=== PATIENT | female | born 1935 ===

== ENCOUNTER 2019-04-25 07:11 | Inpatient (IN) | payer MEDICARE ==
--- NOTE | 2019-04-12 16:12 | HP ---
HISTORY AND PHYSICAL: DATE OF ADMISSION/SURGERY: 04/25/19 DATE OF OFFICE VISIT: 04/10/19 SURGEON: Romi Lopes MD * (DICTATED BY RENNY DE JESUS) PROCEDURE: Left total hip arthroplasty CHIEF COMPLAINT: Left hip pain. HISTORY OF PRESENT ILLNESS: Ms. Warren is 84-year-old female with severe endstage osteoarthritis of left hip. She has failed conservative treatment and elected to proceed with the left total hip arthroplasty. PAST MEDICAL HISTORY: Coronary artery disease, pacemaker, AFib, high cholesterol, hypertension, history of parathyroid tumor, and history of colon cancer. PAST SURGICAL HISTORY: Pacemaker placement, parathyroidectomy, cholecystectomy , tonsillectomy, bowel resection, bilateral carpal tunnel release, cataract removal and hemorrhoidectomy. CURRENT MEDICATIONS: 1. Tramadol 50 mg every 12 hours as needed. 2. Gabapentin 600 mg 4 times a day. 3. Atorvastatin calcium 40 mg a day. 4. 81 mg aspirin. 5. Colace. 6. Tylenol. 7. MiraLAX. 8. Multivitamin. 9. Calcium and vitamin D. 10. Ibuprofen 3 times a day. ALLERGIES: PENICILLIN and DICLOFENAC cream. FAMILY HISTORY: Diabetes, coronary artery disease, and stroke. SOCIAL HISTORY: She is an 84-year-old female. She lives with her . She does not smoke or use drugs. REVIEW OF SYSTEMS: A complete 14 point review of systems was reviewed with the patient, was positive for some occasional chest pain. She denies history of DVT , PE, hepatitis, HIV or anesthesia problems. PHYSICAL EXAMINATION GENERAL: She is well developed, well nourished, in no acute distress. VITAL SIGNS: She stands 5 feet 4 inches tall, weighs 197 pounds, blood pressure 142/82, heart rate 76. HEENT: Normocephalic, atraumatic. NECK: Supple. No palpable lymph nodes. PULMONARY: Lungs are clear to auscultation bilaterally. CARDIO: Regular rate and rhythm. Strong S1, S2. ABDOMEN: Soft, nontender, nondistended. NEUROLOGICAL: She is alert and oriented x3. MUSCULOSKELETAL: Left lower extremity: Skin is intact. There are no open wounds or abrasions. She walks with an antalgic type gait favoring her left hip. She has 70 degrees of hip flexion, 0 degrees of internal rotation, both causing severe groin pain. She is able to dorsiflex and plantarflex, has a 2+ dorsalis pedis pulses. Intact sensation. ASSESSMENT AND PLAN: Ms. Warren is a 84-year-old female with severe endstage osteoarthritis of the left hip. She has failed conservative treatment and elected to proceed with the left total hip arthroplasty. The surgery is scheduled for 04/25/[address] Lopes discussed the risks and benefits of the surgery at today's visit and all of her questions were answered. She will follow up with Dr. Lopes in 2 weeks after the surgery. RENNY DE JESUS [id number]/[facility] #: [id number] ANA
[~2019-04-25 07:11] MED LIST: Acetaminophen TAB* 325 MG PO ONE; Buffered Lidocaine 1% SYRIN* 1 ML/SYRINGE INTRADERM ONE; Lactated Ringers 1000 ML Bag* 1,000 ML IV SCH; celeCOXIB CAP* 100 MG PO ONE
--- OUTSIDE RECORDS SUMMARY | 2019-04-25 07:13 | XMS REPORT | Continuity of Care Document ---
:1935 External Reference #:[id number] Author Name Romi Lopes M.D. 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 Onset: 03/2019 region and thigh Morbid obesity Romi Lopes M.D. Onset: 02/24/2019 Social History Type Date Description Comments Sex Unknown ETOH Use Rarely consumes alcohol Tobacco Use Start: Unknown Patient has never smoked Smoking Status Reviewed: 04/10/19 Patient has never smoked Exercise Type/Frequency Exercises sporadically Allergies, Adverse Reactions, Alerts Active Allergies Reaction Severity Comments Date Penicillin 01/03/2019 Diclofenac Hives 01/03/2019 Inactive Allergies NKDA 01/03/2019 Medications Active Medications SIG Qnty Indications Ordering Date Provider Tramadol HCL 1 tab po q 12h Citlalli Ashley, 50mg MD Tablets Furosemide 1 tab po qd Unknown 20mg Tablets Gabapentin 600mg po qid Citlalli Ashley, 600mg MD Tablets Atorvastatin Calcium 1 tab po qHS Citlalli Ashley, MD 40mg Tablets Aspirin Ec Low Dose 1 by mouth every day Unknown 81mg Tablets Docusate Sodium 1 tab every 12 hours Unknown 100mg as needed for Capsules constipation Acetaminophen 2 every 4 hours as Unknown 325mg needed for pain Tablets Miralax 17 grams by mouth Unknown Powder every day as needed Multivitamin Adults once a day Unknown 50+ Adlt 50+ Tablets Calcium 500+D High take one tab by Unknown Potency mouth daily. [id number] Tablets Ibuprofen 1 by mouth three Unknown 800mg Tablets times a day Medications Administered in Office Medication SIG Qnty Indications Ordering Provider Date Depomedrol 40MG Pepe Hudson MD 01/03/2019 Injection Immunizations Description No Information Available Vital Signs Date Vital Result Comment 04/10/2019 1:04pm Height 64 inches 5'4" Weight 197.00 lb Heart Rate 64 /min BP Systolic 142 mmHg BP Diastolic 82 mmHg Respiratory Rate 18 /min Body Temperature 97.9 F Pain Level 2 BMI (Body Mass Index) 33.8 kg/m2 02/24/2019 11:18am Height 64 inches 5'4" Weight 200.00 lb Heart Rate 72 /min BP Systolic 126 mmHg BP Diastolic 84 mmHg Pain Level 7 BMI (Body Mass Index) 34.3 kg/m2 Results Description No Information Available Procedures Date Code Description Status 01/03/2019 32571 Inject/Drain Joint/Bursa Major W/O US Completed Medical Devices Description No Information Available Encounters Type Date Location Provider Dx Diagnosis Office Visit 02/24/2019 [facility] Romi Lopes, M25.552 Pain in left hip 11:00a at [facility] M16.12 Unilateral primary osteoarthritis, left hip Z68.34 Body mass index (BMI) 34.0-34.9, adult E66.01 Morbid (severe) obesity due to excess calories Office Visit 01/03/2019 [facility] M19.011 Primary 2:30p [facility]oped[facility] at [facility], [place] right shoulder M25.511 Pain in right shoulder M16.12 Unilateral primary osteoarthritis, left hip M25.552 Pain in left hip Assessments Date Code Description Provider 04/10/2019 M25.552 Pain in left hip Romi Lopes M.D. 04/10/2019 M16.12 Unilateral primary osteoarthritis, left hip Romi Lopes M.D. 02/24/2019 M25.552 Pain in left hip Romi Lopes M.D. 02/24/2019 M16.12 Unilateral primary osteoarthritis, left hip Romi Lopes M.D. 02/24/2019 Z68.34 Body mass index (BMI) 34.0-34.9, adult Romi Lopes M.D. 02/24/2019 E66.01 Morbid (severe) obesity due to excess Romi Lopes M.D. calories 01/03/2019 M19.011 Primary osteoarthritis, right shoulder Pepe Hudson MD 01/03/2019 M25.511 Pain in right shoulder Pepe Hudson MD 01/03/2019 M16.12 Unilateral primary osteoarthritis, left hip Pepe Hudson MD 01/03/2019 M25.552 Pain in left hip Pepe Hudson MD Plan of Treatment Future Appointment(s):05/08/2019 2:15 pm - Romi Lopes M.D. at [facility] at Korosu8704/25/2019 2:30 pm - Germán King PA-C at [facility] at Xvafdn6004/25/2019 2:30 pm - RENNY Cobos at [facility] at Lmkqqh1504/25/2019 2:30 pm - Romi Lopes M.D. at [facility] at Maynwk5805/03/2019 10:15 am - Romi Lopes M.D. at [facility] at Lqaras0504/10/2019 - Romi Lopes M.D.M25.552 Pain in left hipFollow up:Follow up: 2 weeks after gbpceebW63.12 Unilateral primary osteoarthritis, left hip Functional Status Description No Information Available Mental Status Description No Information Available Referrals Description No Information Available
--- OUTSIDE RECORDS SUMMARY | 2019-04-25 07:13 | XMS REPORT | Continuity of Care Document ---
:1935 Author Organization [facility] Care Team Providers Name Role Phone CHARISSA RODGERS Admitting Physician CHARISSA RODGERS Attending Physician Allergies and Intolerances Code Code System Allergy Type Reaction Severity Start End Date Status Substance Date RXNorm Penicillins Drug RASH Unknown Active allergy 0 (disorder) Medications RxNorm Medication Dose Route Instructions Start Date End Date Status 1191 Aspirin 81 mg oral orally daily Active (called Denator and verified medication list with the patient and the pharmacy ) 621663 atorvastatin 40 MG 40 mg oral orally every day Active Oral Tablet at bedtime flaxseed qd (stop) Active 698380 Furosemide 20 MG 20 mg oral orally daily Active Oral Tablet 560950 gabapentin 600 MG 600 mg oral orally every day Active Oral Tablet at bedtime 517800 tramadol 50 mg oral orally every 12 Active hydrochloride 50 MG hours as needed. Oral Tablet tylenol prn Active Medications At Time Of Discharge RxNorm Medication Dose Route Instructions Start Date End Date Status 1191 Aspirin 81 mg oral orally daily Active (called Denator and verified medication list with the patient and the pharmacy ) 996346 atorvastatin 40 MG 40 mg oral orally every day Active Oral Tablet at bedtime flaxseed qd (stop) Active 538685 Furosemide 20 MG 20 mg oral orally daily Active Oral Tablet 775936 gabapentin 600 MG 600 mg oral orally every day Active Oral Tablet at bedtime 096793 tramadol 50 mg oral orally every 12 Active hydrochloride 50 MG hours as needed. Oral Tablet tylenol prn Active Problems Code Code System Problem Name Start Date End Date Status Hemorroids U Active 871014816 SNOMED-CT Acute chest pain Active Procedures Code Code System Procedure Date 599057078 SNOMED CT [place]illectomy U 27450045 SNOMED CT Cholecystectomy U Results Microbiology Results w Susceptibilities Order: CULTURE URINE Specimen Source: Urine Body Site: Urine specimen collection, clean catchCultural Observations:Growth not [id number] Lab Footnotes:[facility] - [id number] - [address] [place] [address] FILEMON Agustin [id number] Social History Code Code System Social History Description Dates Observed Observation 841309611 SNOMED CT Current Smoking Unknown if ever Status smoked UNK AdministrativeGender Sex Assigned At Unknown Vital Signs No data in the system Goals Section No data in the system Health Concerns No data in the systemEncounter Diagnosis Date Code Code System Diagnosis Status N39.0 ICD10 UTI SITE NOT SPECIFIED Active Advance Directives HEALTH CARE PROXY Directive Type Effective Date Manager Bench Notes Supporting Document Name Address Phone No Directive 01/29/2019 Not Specified Not Specified Not Specified Health care Yes Type 6:30:00 AM proxy is Jonathan specified Kelvin [phone]. Encounters Encounter Diagnosis Location Date UTI SITE NOT SPECIFIED [facility] 04/11/2019 Family History No Significant Family History Functional Status No data in the system Immunizations No data in the system Medical Equipment No data in the system Mental Status No data in the system Assessment and Plan Assessments No data in the systemPlan Of Treatment No data in the systemPending Tests No data in the system Hospital Discharge Instructions No data in the system Reason for Visit No data in the system
--- OUTSIDE RECORDS SUMMARY | 2019-04-25 07:13 | XMS REPORT | Continuity of Care Document ---
:1935 External Reference #:[id number] Author Name Romi Lopes M.D. 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 [id number] Tablets Ibuprofen 1 by mouth three Unknown [...] BMI (Body Mass Index) 34.3 kg/m2 Results Test Acquired Date Facility Test Result H/L Range Note Urinalysis Profile 04/10/2019 [facility] Urine Color Yellow [address] [place] [address] [phone] Urine Appearance Clear Urine Specific [place] 1.014 Normal 1.010-1.030 Urine pH 6.0 Normal 5-9 Urine Urobilinogen Negative Negative Urine Ketones Negative Negative Urine Protein Negative Negative Urine Leukocytes Negative Negative Urine Blood Negative Negative * * Abnormal Negative 1 Urine Nitrite Negative Negative Urine Bilirubin Negative Negative Urine Glucose Negative Negative CBC Auto 04/10/2019 [facility] White Blood 6.8 10^3/uL Normal 3.5-10.[address] [place] [address] [phone] Red Blood Count 4.42 10^6/uL Normal 3.70-4.87 Hemoglobin 13.5 g/dL Normal 12.0-16.0 Hematocrit 41 % Normal 35-47 Mean Corpuscular Volume 94 fL Normal 80-97 Mean Corpuscular Hemoglobin 31 pg Normal 27-31 Mean Corpuscular HGB Conc 33 g/dL Normal 31-36 Red Cell Distribution Width 13 % Normal 10-15 Platelet Count 252 10^3/uL Normal 150-450 Mean Platelet Volume 8.2 fL Normal 7.4-10.4 Abs Neutrophils 4.9 10^3/uL Normal 1.5-7.7 Abs Lymphocytes 1.2 10^3/uL Normal 1.0-4.8 Abs Monocytes 0.5 10^3/uL Normal 0-0.8 Abs Eosinophils 0.1 10^3/uL Normal 0-0.6 Abs Basophils 0.1 10^3/uL Normal 0-0.2 Abs Nucleated RBC 0.0 10^3/uL Granulocyte % 72.1 % Lymphocyte % 18.3 % Monocyte % 7.5 % Eosinophil % 0.9 % Basophil % 1.2 % Nucleated Red Blood Cells % 0.1 Inr/Protime 04/10/2019 [facility] Inr 0.97 Normal 0.82-1.[address] [place] [address] [phone] Laboratory test 04/10/2019 [facility] Partial 33.4 Normal 26.0 -38.[address] [place] [address] Time PTT [phone] Comp Metabolic 04/10/2019 [facility] Sodium 140 mmol/L Normal 135-[address] [place] [address] [phone] Potassium 4.4 mmol/L Normal 3.5-5.0 Chloride 104 mmol/L Normal 101-111 Co2 Carbon Dioxide 29 mmol/L Normal 22-32 Anion Gap 7 mmol/L Normal 2-11 Glucose 97 mg/dL Normal 70-100 Blood Urea Nitrogen 19 mg/dL Normal 6-24 Creatinine 0.66 mg/dL Normal 0.51-0.95 BUN/Creatinine Ratio 28.8 High 8-20 Calcium 9.5 mg/dL Normal 8.6-10.3 Total Protein 6.4 g/dL Normal 6.4-8.9 Albumin 4.1 g/dL Normal 3.2-5.2 Globulin 2.3 g/dL Normal 2-4 Albumin/Globulin Ratio 1.8 Normal 1-3 Total Bilirubin 0.30 mg/dL Normal 0.2-1.0 Alkaline Phosphatase 90 U/L Normal 34-104 Alt 17 U/L Normal 7-52 Ast 21 U/L Normal 13-39 Egfr Non- 85.1 >60 Egfr 103.0 >60 3 Type & Screen 04/10/2019 [facility] Patient Blood Type O Positive [address] [place] [address] [phone] Antibody Screen NEGATIVE Urine Culture And 04/10/2019 [facility] Urine Culture SEE RESULT [address] [place], [place] [address] [phone] 1 *Ascorbic acid is present which may interfere with detection of blood. 2 Standard intensity warfarin therapeutic range: 2.0-3.0 High intensity warfarin therapeutic range: 2.5-3.5 3 Because ethnic data is not always readily available, this report includes an eGFR for both -Americans and non- Americans. The National Kidney Disease Education Program (NKDEP) does not endorse the use of the MDRD equation for patients that are not between the ages of 18 and 70, are , have extremes of body size, muscle mass, or nutritional status, or are non- or non-. According to the National Kidney Foundation, irrespective of diagnosis, the stage of the disease is based on the level of kidney function: Stage Description GFR(mL/min/1.73 m(2)) 1 Kidney damage with normal or decreased GFR 90 2 Kidney damage with mild decrease in GFR 60-89 3 Moderate decrease in GFR 30-59 4 Severe decrease in GFR 15-29 5 Kidney failure <15 (or dialysis) 4 SEE RESULT BELOW Name: DAVIDA WARREN : [address]: Romi Lopes MD Acct: [id number] Unit: [id number] AGE: 84 Location: [facility] Re04/10/19 SEX: F Status: REG REF SPEC: [id number] SONIA: 04/10/19 [facility] DR: Romi Lopes MD REQ: [id number] RECD: 04/10/19 STATUS: COMP _ SOURCE: URINE SPDESC: ORDERED: Urine Culture Procedure Result Reported Site Urine Culture Final 04/11/19- 1402 ML No Growth (<1,000 CFU/mL) * ML - Main Lab . END OF REPORT DEPARTMENT OF PATHOLOGY, [address] [place] [address] Juan F Mcdonald M.D. Director [facility] # [id number] Procedures Date Code Description Status 01/03/2019 22646 Inject/Drain Joint/Bursa Major W/O US Completed Medical Devices Description No Information Available Encounters Type Date Location Provider Dx Diagnosis Office Visit 02/24/2019 [facility] Romi Lopes, M25.552 Pain in left hip 11:00a at [place] [facility]ildeDM[facility] M16.12 Unilateral primary osteoarthritis, left hip Z68.34 Body mass index (BMI) 34.0-34.9, adult E66.01 Morbid (severe) obesity due to excess calories Office Visit 01/03/2019 [facility] M19.011 Primary 2:30p [facility]oped[facility] at [facility], [place] right shoulder M25.511 Pain in right shoulder [...] 2:15 pm - Romi Lopes M.D. at [facility] at Pqggfs0604/25/2019 2:30 pm - Germán King PA-C at [facility] at Xqlvez8704/25/2019 2:30 pm - RENNY Cobos at [facility] at Sfgmtz3204/25/2019 2:30 pm - Romi Lopes M.D. at [facility] at Linwdf8804/10/2019 - Romi Lopes M.D.M25.552 Pain in left hipFollow up:Follow up: 2 weeks after sdjgcekY57.12 Unilateral primary osteoarthritis, left hip Functional Status Description No Information Available Mental Status Description No Information Available Referrals Description No Information Available
--- OUTSIDE RECORDS SUMMARY | 2019-04-25 07:13 | XMS REPORT | Continuity of Care Document ---
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 Mixed hyperlipidemia Citlalli Ashley MD Onset: 03/20/2014 Obesity Citlalli Ashley MD Onset: 08/16/2014 Malignant tumor of parotid gland Citlalli Ashley MD Onset: 09/18/2014 Spinal stenosis of lumbar region Citlalli Ashley MD Onset: 03/26/2016 Essential hypertension Citlalli Ashley MD Onset: 03/29/2017 Overweight Citlalli Ashley MD Onset: 04/11/2019 Degenerative joint disease involving multiple Citlalli Ashley MD Onset: 04/11 joints Social History Type Date Description Comments Sex Unknown Cigarette Use Denies Cigarette Use Smokeless Tobacco Never Used Smokeless Tobacco ETOH Use Rarely consumes alcohol Tobacco Use Start: Unknown Patient has never smoked Recreational Drug Use Denies Drug Use Smoking Status Reviewed: 04/28/18 Patient has never smoked Allergies, Adverse Reactions, Alerts Active Allergies Reaction Severity Comments Date Penicillin rash 07/10/2014 Diclofenac Sodium Rash Mild Topical 10/27/2018 Medications Active Medications SIG Qnty Indications Ordering Date Provider Tramadol HCL 1 by mouth every 6 120tabs R60.0 Citlalli Ashley, 03/09/2019 50mg hours as needed MD Tablets pain Ibuprofen 1 po tid prn 90tabs Citlalli Carlos Albertos, 10/27/2018 800mg Tablets MD Gabapentin 4 tabs by mouth 120tabs Citlalli Ashley, 03/29/2017 600mg every night at Tablets bedtime Atorvastatin Calcium Take 1 Tablet By 90tabs E78.2 Citlalli Ashley, 2014 Mouth Every Day 40mg Tablets Multi-Day 1 tab po qd Unknown Calcium + D3 1 by mouth every Unknown day [id number] Tablets Miralax 1 tablespoon by Unknown [id number] Powder mouth in in the morning beverage Stool Softener 2 by mouth every Unknown 100mg day as needed Capsules Acetaminophen 2 tabs by mouth Unknown 325mg every 6 hours as Tablets needed pain Aspirin Ec 1 by mouth every Unknown 81mg Tablets day Lisinopril 1 by mouth every Unknown 10mg Tablets day Ibuprofen one tablet every 6 Unknown 400mg Tablets hrs prn History Medications Furosemide 1 by mouth every 30tabs R60.0 Kristin Harrington, 12/27/2018 - 20mg day [facility] 04/10/2019 Tablets Tramadol HCL 1 by mouth twice 60tabs R60.0 Citlalli Ashley, 11/29/2018 - 50mg a day as needed 03/09/2019 Tablets pain Medications Administered in Office Medication SIG Qnty Indications Ordering Provider Date Injection Lila Kwon M.D. 11/28/2018 Acetate 80 MG Injection Injection Lila Kwon M.D. 11/10/2018 Acetate 80 MG Injection Injection Lila Kwon M.D. 08/04/2018 Acetate 80 MG Injection Injection Lila Kwon M.D. 04/28/2018 Acetate 80 MG Injection Injection Lila Kwon M.D. 01/18/2018 Acetate 80 MG Injection Injection Methylprednisolone Nichole Ramírez, [facility] 12/07/2016 Acetate 80 MG Injection Injection Lila Kwon M.D. 10/09/2016 Acetate 80 MG Injection Immunizations CPT Code Status Date Vaccine Lot # [id number] Given 02/10/2019 Influenza Virus Vaccine, Quad, Preservative [id number] Free 6mo & up 56781 Given 02/26/2018 Influenza Virus Vaccine, Quad, Preservative [id number] Free 6mo & up 86434 Given 03/29/2017 Influenza Virus Vaccine, Quad, Preservative [id number] Free 6mo & up 00450 Given 03/26/2016 Influenza Virus Vaccine, Quad, Preservative [id number] Free 6mo & up 71116 Given 03/21/2015 Influenza Virus Vaccine, Quad, Preservative [id number] Free 6mo & up 77911 Given 09/18/2014 Pneumococcal Vaccine 2Yrs Or Older (Pneumovax [id number]) 66904 Given 09/26/2013 Tetanus, Diphtheria Toxoids/Acellular Pertussis Vaccine 7 Or > Q2037 Given 03/21/2013 Influenza Vaccine (Fluvirin) 3 Years Of Age Or Older 75493 Given 05/25/2012 Zoster Shingles Vaccine For Subcutaneous Injection Q2037 Given 03/18/2012 Influenza Vaccine (Fluvirin) 3 Years Of Age Or Older 03772 Given 02/14/2011 Influenza Virus Split 3 Yrs And Above For Intramuscular Use 18280 Given 01/28/2010 Influenza Virus Split 3 Yrs And Above For Intramuscular Use 13921 Given 02/16/2009 Influenza Virus Split 3 Yrs And Above For Intramuscular Use 19366 Given 02/21/2008 Pneumococcal Vaccine 2Yrs Or Older (Pneumovax 23) 68115 Given 02/21/2008 Influenza Virus Split 3 Yrs And Above For Intramuscular Use 67748 Given 03/05/2007 Influenza Virus Split 3 Yrs And Above For Intramuscular Use 61772 Given 02/27/2006 Influenza Virus Split 3 Yrs And Above For Intramuscular Use 17800 Given 07/21/2005 Td Toxoids Adsorbed For Use 7Yrs Or Older For Intramuscular Use 38523 Given 02/28/2005 Influenza Virus Split 3 Yrs And Above For Intramuscular Use 57781 Given 02/22/2003 Influenza Virus Split 3 Yrs And Above For Intramuscular Use 11538 Given 03/30/2000 Pneumococcal Vaccine 2Yrs Or Older (Pneumovax 23) Vital Signs Date Vital Result Comment 04/11/2019 3:30pm Weight 198.00 lb Weight 89.813 kg BMI (Body Mass Index) 35.1 kg/m2 BP Systolic 164 mmHg BP Diastolic 84 mmHg Heart Rate 86 /min Body Temperature 98.6 F Respiratory Rate 18 /min Height 63 inches 5'3" Height in cm's 160.0 cm O2 % BldC Oximetry 96 % 02/10/2019 2:50pm Weight 199.00 lb Weight 90.266 kg BMI (Body Mass Index) 35.2 kg/m2 BP Systolic 120 mmHg BP Diastolic 72 mmHg Heart Rate 98 /min Body Temperature 99.1 F Respiratory Rate 18 /min Height 63 inches 5'3" Height in cm's 160.0 cm O2 % BldC Oximetry 98 % Results Test Acquired Date Facility Test Result H/L Range Note Laboratory test 04/11/2019 [facility] Culture <pending> finding [phone] Urine Laboratory test 02/10/2019 [facility] TSH 1.03 uIU/mL 0.34- 4.82 finding [phone] Basic Metabolic 02/10/2019 [facility] Sodium 143 mmol/L 136- 145 Panel [phone] Potassium 4.7 mmol/L 3.5-5.2 Chloride 106 mmol/L 100-108 Co2 28 mmol/L 21-32 Glucose 120 mg/dL High 70-100 BUN 25 mg/dL High 7-21 Creatinine 1.0 mg/dL 0.6-1.3 1 Calcium 10.0 mg/dL 8.5-10.8 GFR 52 Basic Metabolic Panel 11/29/2018 [facility] Sodium 139 mmol/L 136-145 [phone] Potassium 4.5 mmol/L 3.5-5.2 Chloride 106 mmol/L 100-108 Co2 27 mmol/L 21-32 Glucose 84 mg/dL 70-100 BUN 24 mg/dL High 7-21 Creatinine 0.7 mg/dL 0.6-1.3 2 Calcium 9.5 mg/dL 8.5-10.8 GFR >60 Xray 11/28/2018 [facility] Hip, Unilat W/Pelvis <pending > [address] [place] [address] [phone] Knee, [address] <pending> Comprehensive Panel 10/27/2018 [facility] Sodium 141 mmol/L 136 -145 [phone] Potassium 4.8 mmol/L 3.5-5.2 Chloride 106 mmol/L 100-108 Co2 31 mmol/L 21-32 Glucose 68 mg/dL Low 70-100 BUN 19 mg/dL 7-21 Creatinine 0.7 mg/dL 0.6-1.3 3 Calcium 10.3 mg/dL 8.5-10.8 GFR >60 T Bili 0.4 mg/dL 0.0-1.2 T Protein 6.4 gm/dL 6.4-8.2 Albumin 3.9 gm/dL 3.2-4.6 Alk Phos 106 U/L 40-150 Alt (SGPT) 18 U/L 0-55 Ast (Sgot) 21 U/L 5-37 Lipid Panel 10/27/2018 [facility] Cholesterol 139 mg/dL 120- 200 [phone] Triglycerides 190 mg/dL High 0-149 HDL Cholesterol 38 mg/dL Low 40-60 Chol/HDL Ratio 3.7 <=4.4 4 LDL Direct 74 mg/dL 0-99 VLDL Calculated 38 1 Normal Kidney Function or Mild Disease - GFR >OR= 60 Chronic Kidney Disease - GFR 15-59 Renal Failure - GFR < 15 GFR not calculated on patients under 18 years of age. 2 Normal Kidney Function or Mild Disease - GFR >OR= 60 Chronic Kidney Disease - GFR 15-59 Renal Failure - GFR < 15 GFR not calculated on patients under 18 years of age. 3 Normal Kidney Function or Mild Disease - GFR >OR= 60 Chronic Kidney Disease - GFR 15-59 Renal Failure - GFR < 15 GFR not calculated on patients under 18 years of age. 4 Cholesterol/HDL Ratio Interpretation Risk : 1/2 Avg Avg 2x Avg 3x Avg Male : 3.43 4.97 9.50 23.99 Female : 3.27 4.44 7.05 11.04 Procedures Date Code Description Status 11/28/2018 78978 X-Ray Knee Ap & Lateral W/Obliques Three Views Completed 11/28/2018 08333 X-Ray Hip Unilateral With Pelvis 2-3 Views Completed 11/28/2018 25055 Arthrocentesis Major Joint/Bursa/Ganglion Cyst Completed Inject/Drain 11/10/2018 25759 Arthrocentesis Major Joint/Bursa/Ganglion Cyst Completed Inject/Drain 05/17/2014 07911267 Mammogram Completed 12/15/2013 95462592 Colonoscopy Completed 12/16/2007 123876084 Bone Mineral Density Test Completed Medical Devices Description No Information Available Encounters Type Date Location Provider Dx Diagnosis Office Visit 02/10/2019 [facility] Citlallihedy Ashley, R07.9 Chest pain, 2:45p Care unspecified Z23 Encounter for immunization R60.0 Localized edema Office Visit 12/29/2018 [place] [facility] M19.011 Primary 10:15a Elli Kwon M.D. osteoarthritis, Specialists right shoulder Office Visit 12/27/2018 [facility] Kristin Harrington, R60.0 Localized edema 10:20a Care [employer] M48.061 Spinal stenosis, lumbar region without neurogenic radha I10 Essential (primary) hypertension M25.561 Pain in right knee M25.511 Pain in right shoulder Office Visit 11/29/2018 1:00p [facility] Citlalli Ashley, R60.0 Localized edema Care MD Office Visit 11/28/2018 1:30p [facility] M17.12 Unilateral Orthopaedic Jackelin Kwon primary Specialists osteoarthritis, left knee M70.62 Trochanteric bursitis, left hip M16.12 Unilateral primary osteoarthritis, left hip M25.552 Pain in left hip Office Visit 11/10/2018 [place] [facility] M17.12 Unilateral primary 11:45a Elli Kwon M.D. osteoarthritis, left Specialists knee M25.562 Pain in left knee Office Visit 10/27/2018 11:30a [facility] Citlalli E78.2 Mixed hyperlipidemia Care MD Gabi M79.606 Pain in leg, unspecified Assessments Date Code Description Provider 04/11/2019 I10 Essential (primary) hypertension Citlalli Ashley MD 04/11/2019 M48.061 Spinal stenosis, lumbar region without Citlalli Ashley MD neurogenic claudicati 04/11/2019 M15.0 Primary generalized (osteo)arthritis Citlalli Ashley MD 04/11/2019 E66.3 Overweight Citlalli Ashley MD 03/22/2019 F41.9 Anxiety disorder, unspecified Rivera Rosenthal, [facility] 03/13/2019 F41.9 Anxiety disorder, unspecified Rivera Rosenthal, [facility] 02/21/2019 F41.9 Anxiety disorder, unspecified Rivera Rosenthal, [facility] 02/10/2019 R60.0 Localized edema Apc and Endo Draw 02/10/2019 R07.9 Chest pain, unspecified Citlalli Ashley MD 02/10/2019 Z23 Encounter for immunization Citlalli Ashley MD 02/10/2019 R07.9 Chest pain, unspecified Apc and Endo Draw 02/10/2019 R60.0 Localized edema Citlalli Ashley MD 02/06/2019 F41.9 Anxiety disorder, unspecified Rivera Rosenthal, [facility] 01/11/2019 F41.9 Anxiety disorder, unspecified Rivera Rosenthal, [facility] 01/03/2019 F41.9 Anxiety disorder, unspecified Rivera Rosenthal, [facility] 12/29/2018 M19.011 Primary osteoarthritis, right shoulder Calin Kwon M.D. 12/27/2018 R60.0 Localized edema Kristin S. Juany, [facility] 12/27/2018 M48.061 Spinal stenosis, lumbar region without Kristin S. Juany, [facility] neurogenic claudicati 12/27/2018 I10 Essential (primary) hypertension Kristin S. Juany, [facility] 12/27/2018 M25.561 Pain in right knee Kristin S. Juany, [facility] 12/27/2018 M25.511 Pain in right shoulder Kristin S. Juany, [facility] 12/07/2018 F41.9 Anxiety disorder, unspecified Rivera Rosenthal, [facility] 11/29/2018 R60.0 Edema Apc and Endo Draw 11/29/2018 R60.0 Edema Citlalli Ashley MD 11/28/2018 F41.9 Anxiety disorder, unspecified Rivera Rosenthal, [facility] 11/28/2018 M17.12 Unilateral primary osteoarthritis, left knee Calin Kwon M.D. 11/28/2018 M70.62 Trochanteric bursitis, left hip Calin Kwon M.D. 11/28/2018 M16.12 Unilateral primary osteoarthritis, left hip Calinvalentina Kwon M.D. 11/28/2018 M25.552 Pain in left hip Calinvalentina Kwon M.D. 11/10/2018 M17.12 Unilateral primary osteoarthritis, left knee Calinarabella Kwon M.D. 11/10/2018 M25.562 Pain in left knee CalinSridevi MezaDMatilde 11/08/2018 F41.9 Anxiety disorder, unspecified Rivera Rosenthal, [facility] 10/27/2018 E78.2 Mixed hyperlipidemia Apc and Endo Draw 10/27/2018 E78.2 Mixed hyperlipidemia Citlalli Ashley MD 10/27/2018 M79.606 Pain in lower limb Citlalli Ashley MD 10/24/2018 F41.9 Anxiety disorder, unspecified Rivera Rosenthal LMSW 10/12/2018 F41.9 Anxiety disorder, unspecified Rivera Rosenthal LMSW Plan of Treatment No Information Available Functional Status Description No Information Available Mental Status Description No Information Available Referrals Description No Information Available
--- OUTSIDE RECORDS SUMMARY | 2019-04-25 07:13 | XMS REPORT | Continuity of Care Document ---
:1935 External Reference #:[id number] Author Name Romi Lopes M.D. 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 Onset: 03/2019 region and thigh Social History Type Date Description Comments Sex Unknown ETOH Use Rarely consumes alcohol Tobacco Use Start: Unknown Patient has never smoked Smoking Status Reviewed: 02/24/19 Patient has never smoked Exercise Type/Frequency Exercises [...] one tab by Unknown Potency mouth daily. [id number] Tablets Ibuprofen 1 by mouth three Unknown 800mg Tablets times a day Medications Administered in Office Medication SIG Qnty Indications Ordering Provider Date Depomedrol 40MG Pepe Hudson MD 01/03/2019 Injection Immunizations Description No Information Available Vital Signs Date Vital Result Comment 02/24/2019 11:18am Height 64 inches 5'4" Weight 200.00 lb Heart Rate 72 /min BP Systolic 126 mmHg BP Diastolic 84 mmHg Pain Level 7 BMI (Body Mass Index) 34.3 kg/m2 01/03/2019 3:38pm Height 64 inches 5'4" Weight 202.00 lb Heart Rate 87 /min BP Systolic 118 mmHg BP Diastolic 78 mmHg Respiratory Rate 18 /min Body Temperature 98.0 F Pain Level 8 BMI (Body Mass Index) 34.7 kg/m2 Results Description No Information Available Procedures Date Code Description Status 01/03/2019 70562 Inject/Drain Joint/Bursa Major W/O US Completed Medical Devices Description No Information Available Encounters Type Date Location Provider Dx Diagnosis Office Visit 01/03/2019 [facility] Pepe Fitzgerald M19.011 Primary 2:30p at [facility] Hudson MD osteoarthritis, right shoulder M25.511 Pain in right shoulder M16.12 Unilateral primary osteoarthritis, left hip M25.552 Pain in left hip Assessments Date Code Description Provider 02/24/2019 M25.552 Pain in left hip Romi Lopes M.D. 02/24/2019 M16.12 Unilateral primary osteoarthritis, left hip Romi Lopes M.D. 01/03/2019 M19.011 Primary osteoarthritis, right shoulder Pepe Hudson MD 01/03/2019 M25.511 Pain in right shoulder Pepe Hudson MD 01/03/2019 M16.12 Unilateral primary osteoarthritis, left hip Pepe Hudson MD 01/03/2019 M25.552 Pain in left hip Pepe Hudson MD Plan of Treatment Future Appointment(s):05/03/2019 10:15 am - Romi Lopes M.D. at [facility]/24/2019 - Romi Lopes M.D.M25.552 Pain in left hipNew Xrays:Hip Left 2 Views And Pelvis [address]643 - [address]57, Ordered: 02/24/19Follow up: Follow up: 7-10 days before murmspxX96.12 Unilateral primary osteoarthritis, left hip Functional Status Description No Information Available Mental Status Description No Information Available Referrals Description No Information Available
[2019-04-25] MEDS ORDERED: Midazolam* 1 MG/ML 2 ML VIAL (2 MG) ONE (08:11)
[2019-04-25] MEDS ORDERED: fentaNYL* 50 MCG/ML 2 ML VIAL (100 MCG VIAL) ONE ×2 (08:11→08:13)
[2019-04-25] MEDS ORDERED: Propofol* 500 MG/50 ML BTL ONE (08:11)
[2019-04-25] MEDS ORDERED: celeCOXIB CAP* 100 MG ONE (08:25)
[2019-04-25] MEDS ORDERED: Clindamycin 900 MG/D5W BAG(*) 900 MG/50 ML BAG IVPB ONE (08:25)
[2019-04-25] MEDS ORDERED: Buffered Lidocaine 1% SYRIN* 1 ML/SYRINGE INTRADERM ONE (08:26)
[2019-04-25] MEDS ORDERED: ROPIVACAINE 5 MG/ML 30 ML BTL (0.5%) ONE (10:01)
[2019-04-25] MEDS ORDERED: diPHENhydraMINE IV* 50 MG/ML 1 ml VIAL (BENADRYL) IV PRN ×2 (10:55→13:07)
[2019-04-25] MEDS ORDERED: Naloxone* 0.4 MG/ML 1 ML VIAL IV PRN (10:55)
[2019-04-25] MEDS ORDERED: PROCHLORPERAZINE INJ 5 MG/ML 2 ML VIAL IV PRN (10:55)
[2019-04-25] MEDS ORDERED: Acetaminophen TAB* 325 MG PO PRN ×2 (10:55→13:07)
[2019-04-25] MEDS ORDERED: HYDROmorphone INJ1* 1 MG/ML SYRINGE IV PRN (10:55)
[2019-04-25] MEDS ORDERED: Ondansetron INJ* 2 MG/ML VIAL IV PRN ×2 (10:55→13:07)
[2019-04-25] MEDS ORDERED: diPHENhydraMINE PO* 25 MG PO PRN (13:07)
[2019-04-25] MEDS ORDERED: oxyCODONE TAB* 5 MG TAB PO PRN (13:07)
[2019-04-25] MEDS ORDERED: Ondansetron ODT TAB* 4 MG PO PRN (13:07)
[2019-04-25] MEDS ORDERED: Magnesium Hydroxide LIQ* 30 ML UDC PO PRN (13:07)
[2019-04-25] MEDS ORDERED: Cyclobenzaprine TAB* 10 MG PO PRN (13:07)
[2019-04-25] MEDS ORDERED: Acetaminophen TAB* 325 MG ONE (13:16)
[2019-04-25] MEDS ORDERED: oxyCODONE TAB* 5 MG TAB ONE ×2 (13:29→13:56)
[2019-04-25] MEDS: oxyCODONE TAB* 5 MG TAB PO PRN ×2 (13:30→13:57)
[2019-04-25] MEDS ORDERED: Docusate CAP* 100 MG PO PRN (14:33)
--- NOTE | 2019-04-25 14:46 | OP ---
Operative Report - Blank - Operative Report Date of Operation: 04/25/19 Note: ROGERIO CHAVIS 1935 Date Of Surgery: 04/25/19 Romi Lopes MD Engineering Intern: Joan LAWSON did help throughout the procedure with preparation of the hip, wound retraction, manipulation of the hip, and wound closure. Anesthesiologist: Dr. Hagen Anesthesia Type: Spinal Preoperative Diagnosis: Left severe degenerative osteoarthritis of the hip Postoperative Diagnosis: As above with subchondral acetabular cysts Procedure Performed: Left Total Hip Arthroplasty with subchondral acetabular cyst bone grafting. Complications: None Specimen: Femoral head and acetabular reamings sent to pathology. Hardware used: This is uncemented Paxton total hip arthroplasty hardware for the femur a size 5 accolade II with 132 neck angle femoral component, for the acetabulum a size 48 D trident II tritanium cluster hole shell, two 15 mm screws , for the insert a size 36D trident X3 polyethylene insert, and for the femoral head a size 36 - 2.5 ceramic biolox V40 femoral head. Brief history/Indication: ROGERIO CHAVIS was known in clinic and had a history of severe left hip pain. She failed conservative treatment with anti- inflammatories, pain pills, intra-articular injections and physical therapy. She elected to undergo left total hip arthroplasty due to continued pain and decreased quality of life. Radiographs showed severe end stage osteoarthritis of the hip with bone on bone contact. Informed consent was obtained from the patient. She understood the risks of surgery included but were not limited to: bleeding, infection, damage to nearby structures, intraoperative fracture, nerve palsy, failure of the hardware, early loosening, stiffness or loss of motion, dislocation, leg length discrepancy, anesthesia complications, stroke, heart attack, blood clot and . She wished to proceed. Intra-Operative findings: Intraoperatively the patient was noted to have severe loss of cartilage of the acetabulum and femoral head. She had significant subchondral bone cysts in the acetabulum. Description of the Procedure: ROGERIO CHAVIS was identified in the preanesthesia unit. Her left hip was marked as the correct operative side. Informed consent was signed and placed in the chart. The patient was taken to the operating room and placed under anesthesia without complication. A bella catheter was placed. The patient was placed on the peg board with all bony prominences well padded. The left lower extremity was prepped and draped in the usual sterile fashion. Preoperative time-out was made to correctly identify the patient, side and site. Appropriate intraoperative antibiotics were given within one hour of incision. A standard posterior incision was made and carried sharply down to the lateral fascia. A new 10 blade was used to make an incision in the fascia in line with the skin incision. A charnley retractor was placed. The piriformis and conjoined tendons were identified and elevated off the posterolateral femur using electrocautery. These were tagged with number 5 Ethibond. Next electrocautery was used to make a posterolateral capsular flap and this was tagged with number 5 Ethibonds. The hip was carefully dislocated. Lesser trochanter to the center of the femoral head was measured at 58 mm. The oscillating saw was used to make the femoral neck cut. The femoral head was carefully removed. The femur was retracted anteriorly and the acetabular retractors were placed. Long-handled knife was used to sharply remove any remaining labrum from the acetabular rim. The acetabulum was sequentially reamed up to a size 48. A bleeding subchondral bone bed was obtained. Subchondral cysts were bone grafted using femoral head bone. A trial liner was placed and had excellent fit and stability. A 48D cup with two screws was placed and had excellent stability with appropriate anteversion and abduction angle. A size 36D liner was impacted into the acetabular shell. The liner was checked for stability and was stable. Next attention was turned to preparation of the femoral canal. A canal finder was used to enter the proximal femur. The femoral canal was sequentially broached up to a size 5 femoral broach trial. A trial neck and 36 - 2.5 trial femoral head was chosen. Lesser trochanter to center of the femoral head measurement was satisfactory. The hip was reduced and taken through a range of motion. The hip was stable in all positions with good soft tissue tension and appropriate leg lengths. The hip was dislocated and all trials were removed. The final implant chosen was a accolade size 5. This stem was impacted into the femoral canal without difficulty. The stem was stable with appropriate anteversion. The femoral head chosen was a 36 - 2.5 head. The head was impacted onto the femoral neck without difficulty. The final lesser trochanter to center of the femoral head measurement was satisfactory. The hip was reduced and taken through a range of motion. The hip was stable in all positions with good soft tissue tension and appropriate leg lengths. The hip was copiously irrigated with sterile saline. The previously tagged capsule and tendons were repaired to the posterolateral femur through two trochanteric drill holes. The lateral fascia layer was closed using number 1 vicryls. The rest of the incision was closed in a layered fashion using 0 and 2-0 vicryls. The skin was closed using 3-0 monocryl suture and Dermabond. Sterile adaptic, 4x4s and paper tape was used to cover the incision. The patients anesthesia was reversed without difficulty. She was taken to the PACU in stable condition. Intended weight-bearing will be as tolerated with posterior hip precautions.
[2019-04-25] MEDS: Lactated Ringers 1000 ML Bag* 1,000 ML IV SCH (15:05)
[2019-04-25] MEDS: Morphine INJ* 2 MG/ML 1 ML SYRINGE (TWO MG - NEW SYRINGE VERSION) IV PRN ×2 (15:14→19:31)
--- NOTE | 2019-04-25 15:28 | CONS ---
CC: Dr. Citlalli Ashley; Dr. Sean Orlando; Dr. Phoebe Herman * CONSULTATION REPORT: DATE OF CONSULT: 04/25/19 PRIMARY CARE PROVIDER: Dr. Citlalli Ashley. PROTOZOOLOGY TEACHER: Dr. Sean Orlando from [facility]. REASON FOR CONSULTATION: Medical co-management of the patient with history of pacemaker, status post left hip replacement. CONSULT REQUESTED BY: Dr. Romi Lopes. CHIEF COMPLAINT: Left hip pain. HISTORY OF PRESENT ILLNESS: Davida Warren is an 84-year-old female with history of heart block; status post pacemaker placement, no significant coronary artery disease history as per medical records, and apparently history of negative cardiac catheterization in 2012 who is status post elective left hip replacement. The patient is doing well postoperatively. She feels slight pain in the postoperative hip, but otherwise is feeling good. She denies any chest pain or shortness of breath. She is seen for postoperative medicine evaluation. PAST MEDICAL HISTORY: 1. History of heart block, status post pacemaker placement in 2011. 2. History of systolic dysfunction with EF of 40% to 45% and mild left ventricular dysfunction due to frequent right ventricular pacing diagnosed by her activity director, Dr. Sean Orlando, from [facility] in [place]. 3. History of paroxysmal atrial fibrillation, not on anticoagulation. According to the patient's cardiology note, the patient's Holter monitoring did not show any recent episodes of atrial fibrillation. 4. Recent cardiac stress test in January 2019 showed EF of 35% with inferior wall akinesis and severe lateral wall hypokinesis, fixed defect of the inferior wall consistent with prior infarction. 5. History of cardiac catheterization in 2012 with no noted coronary artery disease. 6. History of parotid gland cancer, status post resection in [address] Bravo. 7. History of spinal stenosis. 8. Hypertension. 9. Degenerative disk disease. 10. Colon cancer, status post partial right colectomy laparoscopic in 2009. 11. Heart block, status post pacer in 2011. PAST SURGICAL HISTORY: 1. Colectomy in 2009. 2. History of hernia repair ventral x2. 3. Cataract removal. 4. Pacemaker in 2011. 5. Appendectomy. 6. History of fatty tumor removed from left breast. 7. Bilateral carpal tunnel. 8. 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 MEDICATIONS: At home include: 1. Ultram 50 mg up to 4 times a day p.r.n. 2. MiraLAX 17 g daily. 3. Multivitamin 1 tablet daily. 4. Lisinopril 10 mg daily. 5. Ibuprofen 800 mg b.i.d. 6. Gabapentin 4 tablets at bedtime, total of 2400 mg. 7. Colace 100 mg daily p.r.n. 8. Calcium citrate and vitamin D3 at 500 mg daily. 9. Lipitor 40 mg daily. 10. Aspirin 81 mg daily. 11. Acetaminophen on a p.r.n. basis. ALLERGIES: PENICILLIN. FAMILY HISTORY: Father at the age of 30 after surgery for bowel obstruction. Mother at the age of 91 secondary to COPD. SOCIAL HISTORY: The patient is . 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 Her is her surrogate. She denies any tobacco, alcohol, or drug use. REVIEW OF SYSTEMS: Please see history of present illness. All the remaining 12 systems were reviewed with the patient and were, otherwise, negative. PHYSICAL EXAM: Blood pressure of 129/71, heart rate of 66 and regular, respiratory rate 19, oxygen saturation 100% on 2 L of oxygen nasal cannula, temperature of 98.2. General: The patient is a pleasant 84-year-old female who is in no acute distress. Alert, awake, and oriented x3. HEENT: Head: Atraumatic, normocephalic. Eyes: Pupils are equal and reactive to light and accommodation. Oropharynx is clear. Mucosa moist. Neck: Supple. No JVD. No bruits bilaterally. Cardiovascular: Regular rate and rhythm. No murmur. Respiratory: Clear to auscultation bilaterally. Abdomen: Soft and nontender. Bowel sounds are present in all 4 quadrants. Extremities: There is +1 pitting pedal edema bilaterally. Pulses are +2 bilaterally. There is no clubbing or cyanosis. The left hip is in postsurgical dressings and the dressings were not removed for further evaluation. On evaluation of the skin, no ecchymotic areas or rashes noted. Neuro Evaluation: Speech clear. Cranial nerves II through XII are grossly intact. Motor strength is 5/5 bilaterally. DIAGNOSTIC STUDIES/LAB DATA: Current laboratory data: None. ASSESSMENT AND PLAN: 1. For the patient's hypertension, we will hold off lisinopril and observe and see if the patient's blood pressure is stable. We could restart it a day after surgery. Once again, it depends on how she responds with her blood pressure to her narcotic pain medications. 2. For her dyslipidemia, her statin can be continued. 3. For her history of neuropathic pain, gabapentin can be continued at night. 4. The patient's code status is full. Her surrogate is her . 5. As per medical records, the patient has no definitive history of coronary artery disease, although her cardiac stress test documented an area of hypokinesis in her heart consistent with prior myocardial infarction. Her cardiac catheterization in 2012 was negative. At this point, she is going to be placed on Eliquis for DVT prophylaxis. I suspect that she would benefit from continuation of aspirin postoperatively whenever it is okayed by Surgery in conjunction with anticoagulation. TIME SPENT: Approximately 55 minutes were spent on the consultation of this patient, more than half that time was spent [id number] with the patient during the interview and physical exam. Thank you very much for allowing us to participate in your patient's care. We will see the patient on a daily basis. [id number]/[facility] #: [id number] ANA
--- NOTE | 2019-04-25 15:52 | PN ---
Progress Note - Progress Note Date of Service: 04/25/19 Note: OOB to chair, pain well controlled, ambulated well with PT; able to DF/PF, 2+ DP pulse and intact sensation
[2019-04-25] MEDS: Clindamycin 600 MG/D5W BAG(*) 600 MG/50 ML BAG IV SCH (16:31)
[2019-04-25] MEDS: oxyCODONE/Acetamin 5/325 MG* TAB PO PRN ×2 (17:01→21:43)
[2019-04-25] MEDS: Gabapentin CAP(*) 400 MG PO SCH (21:29)
[2019-04-25] MEDS: Docusate CAP* 100 MG PO SCH (21:30)
[2019-04-25] MEDS: Magnesium Hydroxide LIQ* 30 ML UDC PO SCH (21:31)
[2019-04-26] MEDS: Clindamycin 600 MG/D5W BAG(*) 600 MG/50 ML BAG IV SCH ×2 (00:26→08:43)
[2019-04-26] MEDS: oxyCODONE/Acetamin 5/325 MG* TAB PO PRN ×4 (03:38→19:59)
[2019-04-26] MEDS: Lactated Ringers 1000 ML Bag* 1,000 ML IV SCH (05:39)
[2019-04-26 06:05] LABS: Hematocrit 32 % (35-47); Hemoglobin 10.9 g/dL (12.0-16.0); Mean Platelet Volume 8.4 fL (7.4-10.4); Platelet Count 172 10^3/uL (150-450)
[2019-04-26 06:21] LABS: BUN/Creatinine Ratio 32.8 (8-20); Calcium 8.4 mg/dL (8.6-10.3); EGFR African American 101.2 (>60); EGFR Non-African American 83.7 (>60); Potassium 4.3 mmol/L (3.5-5.0)
[2019-04-26] MEDS: traMADol TAB* 50 MG PO PRN ×2 (07:52→14:59)
[2019-04-26] MEDS: Polyethylene Glycol 3350* 17 GM PACKET PO SCH (08:44)
[2019-04-26] MEDS: Apixaban* 2.5 MG TAB PO SCH ×2 (08:45→19:59)
[2019-04-26] MEDS: Docusate CAP* 100 MG PO SCH ×2 (08:45→19:59)
[2019-04-26] MEDS: Vitamin THERAPEUTIC TAB PO SCH (08:46)
[2019-04-26] MEDS: Magnesium Hydroxide LIQ* 30 ML UDC PO SCH ×2 (08:47→19:50)
--- NOTE | 2019-04-26 12:21 | PN ---
Subjective Date of Service: 04/26/19 Interval History: Pt feels well. Was offered [facility] admission for tomorrow, but unsure if she wants to stay in [place], would prefer a facility in [place] Objective Active Medications: Acetaminophen (Tylenol Tab*) 650 mg PO Q8HR PRN PRN Reason: MILD PAIN or TEMP > 100.4 Apixaban (Eliquis*) 2.5 mg PO BID [facility] Last Admin: 04/26/19 08:45 Dose: 2.5 mg Bisacodyl (Dulcolax Supp*) 10 mg CO DAILY PRN PRN Reason: CONSTIPATION Cyclobenzaprine HCl (Flexeril Tab*) 10 mg PO Q6H PRN PRN Reason: SPASMS Last Admin: 04/25/19 17:01 Dose: 10 mg Diphenhydramine HCl (Benadryl Iv*) 25 mg IV Q6H PRN PRN Reason: PRURITIS Diphenhydramine HCl (Benadryl Po*) 25 mg PO Q6H PRN PRN Reason: PRURITIS Docusate Sodium (Colace Cap*) 100 mg PO BID [facility] Last Admin: 04/26/19 08:45 Dose: 100 mg Docusate Sodium (Colace Cap*) 100 mg PO DAILY PRN PRN Reason: CONSTIPATION Gabapentin (Neurontin Cap(*)) 2,400 mg PO BEDTIME [facility] Last Admin: 04/25/19 21:29 Dose: 2,400 mg Lactated Ringer's (Lactated Ringers 1000 Ml Bag*) 1,000 mls @ 75 mls/hr IV PER RATE [facility] Last Admin: 04/26/19 05:39 Dose: 75 mls/hr Lactulose (Lactulose*) 30 ml PO BID PRN PRN Reason: CONSTIPATION Magnesium Hydroxide (Milk Of Magnesia Liq*) 30 ml PO BID [facility] Last Admin: 04/26/19 08:47 Dose: Not Given Magnesium Hydroxide (Milk Of Magnesia Liq*) 30 ml PO Q6H PRN PRN Reason: CONSTIPATION Morphine Sulfate (Morphine Inj (Syringe))*) 2 mg IV Q4H PRN PRN Reason: Pain - Unrelieved Last Admin: 04/25/19 19:31 Dose: 2 mg Multivitamins (Theragran Tab*) 1 tab PO DAILY [facility] Last Admin: 04/26/19 08:46 Dose: 1 tab Ondansetron HCl (Zofran Inj*) 4 mg IV Q6H PRN PRN Reason: NAUSEA Ondansetron HCl (Zofran Odt Tab*) 4 mg PO Q6H PRN PRN Reason: NAUSEA Oxycodone HCl (Roxycodone Tab*) 10 mg PO Q4H PRN PRN Reason: Pain - Breakthrough Oxycodone/Acetaminophen (Percocet 5/325 Tab*) 1 tab PO Q4H PRN PRN Reason: PAIN - MODERATE Last Admin: 04/26/19 09:34 Dose: 1 tab Oxycodone/Acetaminophen (Percocet 5/325 Tab*) 2 tab PO Q4H PRN PRN Reason: PAIN - SEVERE Last Admin: 04/26/19 03:38 Dose: 2 tab Polyethylene Glycol/Electrolytes (Miralax*) 17 gm PO DAILY [facility] Last Admin: 04/26/19 08:44 Dose: 17 gm Tramadol HCl (Ultram*) 50 mg PO QID PRN PRN Reason: PAIN-MODERATE/TEMP >/= 100.4 Last Admin: 04/26/19 07:52 Dose: 50 mg Vital Signs - 8 hr 04/26/19 04/26/19 04/26/19 05:41 07:52 07:53 Temperature 98.2 F Pulse Rate 89 Respiratory 18 20 18 Rate Blood Pressure 99/55 (mmHg) O2 Sat by Pulse 96 Oximetry 04/26/19 04/26/19 04/26/19 08:00 09:34 09:35 Temperature Pulse Rate Respiratory 20 20 20 Rate Blood Pressure (mmHg) O2 Sat by Pulse 96 Oximetry Oxygen Devices in Use Now: Nasal Cannula Appearance: 84 yo F in nAD, aAOx3 Eyes: No Scleral Icterus, PERRLA Ears/Nose/Mouth/Throat: NL Teeth, Lips, Gums, Mucous Membranes Moist Neck: NL Appearance and Movements; NL JVP, Trachea Midline Respiratory: Symmetrical Chest Expansion and Respiratory Effort, Clear to Auscultation Cardiovascular: NL Sounds; No Murmurs; No JVD, RRR Abdominal: NL Sounds; No Tenderness; No Distention Lymphatic: No Cervical Adenopathy Extremities: No Clubbing, Cyanosis, - - R thigh incision not examined. r ankle edema -trace Skin: No Nodules or Sclerosis Neurological: Alert and Oriented x 3, NL Muscle Strength and Tone Result Diagrams: 04/26/19 05:41 04/26/19 05:41 Assess/Plan/Problems-Billing Assessment: 84 yo F with h/o systolic dysfunction EF 40-45%, pacer, HTN s/p elective L hip replacement - Patient Problems (1) S/P hip replacement Comment: As per DR. Lopes (2) HTN (hypertension) Comment: currently low normal SBP Cont IVF, hold lisinopril (3) Anemia Comment: acute, postoperative to be expected after the surgery (4) DVT prophylaxis Comment: Eliquis Status and Disposition: inpatient
--- NOTE | 2019-04-26 12:33 | PN ---
Progress Note - Progress Note Date of Service: 04/26/19 SOAP: Subjective: []Pt seen at bedside. She feels well without complaints. Denies CP, SOB, dizziness or nausea. Hip pain is well controlled. Objective: []Gen: NAD, appears well LLE: Left hip dressing CDI,thigh is soft and nontender. DF/PF intact, DP2+, sensation intact to light touch distally Calves supple and nontender Assessment: []POD 1 SP LTH Plan: [] WBAT PT/OT Posterior hip precautions Eliquis 2.5 mg po BID x 30 days post op Repeat Na tomorrow, mild hyponatremia Has [facility] offer, pt unsure if accepting due to distance from home. Vital Signs Temp 99.2 F 04/26/19 12:30 Pulse 81 04/26/19 12:30 Resp 16 04/26/19 12:30 BP 98/71 04/26/19 12:30 Pulse Ox 93 04/26/19 12:30 Intake & Output 04/25/19 04/26/19 04/26/19 18:59 06:59 18:59 Intake Total 1700 2025 600 Output Total 600 975 Balance 1100 1050 600 Weight 199 lb 12.8 oz Intake: IV Fluids 1500 1085 ABX - CLINDAMYCIN 105 LR 1500 980 Oral 200 940 600 Output: Urine 75 Marroquin 400 900 Estimated Blood Loss 200 Laboratory Last Values Hgb 10.9 g/dL (12.0-16.0) L 04/26/19 05:41 Hct 32 % (35-47) L 04/26/19 05:41 Plt Count 172 10^3/uL (150-450) 04/26/19 05:41 MPV 8.4 fL (7.4-10.4) 04/26/19 05:41 Sodium 134 mmol/L (135-145) L 04/26/19 05:41 Potassium 4.3 mmol/L (3.5-5.0) 04/26/19 05:41 Chloride 102 mmol/L (101-111) 04/26/19 05:41 Carbon Dioxide 29 mmol/L (22-32) 04/26/19 05:41 Anion Gap 3 mmol/L (2-11) 04/26/19 05:41 BUN 22 mg/dL (6-24) 04/26/19 05:41 Creatinine 0.67 mg/dL (0.51-0.95) 04/26/19 05:41 Est GFR ( Amer) 101.2 (>60) 04/26/19 05:41 Est GFR (Non-Af Amer) 83.7 (>60) 04/26/19 05:41 BUN/Creatinine Ratio 32.8 (8-20) H 04/26/19 05:41 Glucose 137 mg/dL (70-100) H 04/26/19 05:41 Calcium 8.4 mg/dL (8.6-10.3) L 04/26/19 05:41
[2019-04-26] MEDS: Gabapentin CAP(*) 400 MG PO SCH (19:58)
[2019-04-27] MEDS: oxyCODONE/Acetamin 5/325 MG* TAB PO PRN ×3 (00:40→09:03)
[2019-04-27 07:04] LABS: Hematocrit 31 % (35-47); Hemoglobin 10.4 g/dL (12.0-16.0); Mean Platelet Volume 8.8 fL (7.4-10.4); Platelet Count 142 10^3/uL (150-450)
[2019-04-27 07:57] VITALS: BP 104/69
[2019-04-27] MEDS: Vitamin THERAPEUTIC TAB PO SCH (08:27)
[2019-04-27] MEDS: Apixaban* 2.5 MG TAB PO SCH (08:27)
[2019-04-27] MEDS: Docusate CAP* 100 MG PO SCH (08:28)
[2019-04-27] MEDS: Polyethylene Glycol 3350* 17 GM PACKET PO SCH (08:28)
[2019-04-27] MEDS: Magnesium Hydroxide LIQ* 30 ML UDC PO SCH (08:30)
--- NOTE | 2019-04-27 11:03 | DS ---
Orthopedic Discharge Summary - Discharge Summary Date of Admission:04/25/19 Date of Discharge: 04/27/19 Date of Surgery: 04/25/19 Attending Orthopedic Provider: Dr Lopes Pre-operative Diagnosis: Left hip osteoarthritis Operative Procedure: left total hip replacement Disposition of Patient: [facility] Condition of Patient: stable History: ROGERIO CHAVIS is a 84 year old F with years of increasingly severe left hip pain. Patient has failed conservative management and has elected to undergo a left total hip replacement Hospital Course: ROGERIO was admitted to [facility] on 04/25/19. Patient underwent a left total hip replacement without complication followed by a brief recovery in PACU and transfer to the Short Stay Surgical Unit in stable condition. Our hospitalist service, physical therapy and occupational therapy also participated in this patients care. Post-op day 1: patient was alert and in no acute distress. Dressing was clean, dry and intact. Operative extremity dorsiflexion and plantarflexion intact, sensation intact to light touch distally , DP2+. Post-op day two: dressing was changed, incision was clean, dry and intact. Patient was deemed to be medically and orthopedically stable for discharge. Physical therapy goals were met. Home Medications Medication Instructions Recorded Confirmed Type Aspirin Aspirin 81 MG TAB 81 mg PO QAM 08/15/14 04/25/19 History Multivitamin [Multivitamins] 1 cap PO QAM 08/15/14 04/25/19 History Polyethylene Glycol 3350* 17 gm PO DAILY 08/15/14 04/25/19 History [Miralax*] Acetaminophen TAB* [Tylenol TAB*] 1 tab PO Q6HR PRN 04/10/19 04/25/19 History Atorvastatin* 40 mg PO QPM 04/10/19 04/25/19 History Calcium Citrate/Vitamin D3 500 mg PO QAM 04/10/19 04/25/19 History [Calcium Citrate - Vit D Tablet] Gabapentin TAB(NF) [Neurontin 600 4 tab PO BEDTIME 04/10/19 04/25/19 History mg TAB(NF)] Lisinopril TAB* [Prinivil TAB 10 10 mg PO QAM 04/10/19 04/25/19 History MG*] traMADol TAB* [Ultram*] 50 mg PO QID PRN MDD 4 04/10/19 04/25/19 History Docusate Sodium 100 mg PO DAILY PRN 04/25/19 04/25/19 History Acetaminophen TAB* [Tylenol TAB*] 650 mg PO Q8HR PRN tab 04/27/19 Rx Apixaban* [Eliquis*] 2.5 mg PO BID #0 tab 04/27/19 Rx Docusate CAP* [Colace Cap*] 100 mg PO BID cap 04/27/19 Rx oxyCODONE/Acetamin 5/325 MG* 1 tab PO Q4H PRN tab MDD 04/27/19 Rx [Percocet 5/325 TAB*] oxyCODONE/Acetamin 5/325 MG* 2 tab PO Q4H PRN tab MDD 10 04/27/19 Rx [Percocet 5/325 TAB*] traMADol TAB* [Ultram*] 50 mg PO QID PRN tab MDD 04/27/19 Rx Discharge Instructions following Orthopedic Surgery: Activity: * Weight Bearing as tolerated * Continue physical therapy and occupational therapy exercises as shown * PT at [facility] Hip replacements: Continue Hip Precautions- do not cross legs or bend greater than 90 degrees/squat Wound care: * OK to shower on post-op day 3, no bathing, swimming, or submerging wound. * Use gentle soap, pat dry. Cover with gauze, FOSTER wrap or tape. * [facility] nurse to do wound checks. Call Orthopedic office for: * Increased drainage * Redness * Increased pain * Fever Go to ER with shortness of breath or chest pain. Diet: * Regular diet * Increase fluids and fiber to prevent constipation. * Continue to use stool softeners, call office if no bowel motion within 48 hours. Medications See Home Medication List in your packet for medications that you should take after discharge. DVT Prophylaxis: Eliquis Dosin.5 mg, 1 tab every 12 hours x 30 days. Increases bleeding tendency Pain Control: Percocet Dosin/325 mg 1-2 tabs by mouth every 4-6 hours as needed for pain. Maximum of 10 tabs per day. Hold for sedation, wean off as soon as pain allows Please note that Percocet contains Tylenol (acetaminophen). Maximum daily dose of Tylenol is 4000 mg from all sources. Antibiotics are required prior to any dental work. FOLLOW UP: Follow up with Dr. Thornton] Within 10-14 days, call for appointment Please call our office with any questions or concerns ([phone]) DC to [facility] no rx needed Please recheck sodium tomorrow and as needed while in [facility]
== END 2019-04-27 11:35 | DRG 470 ==
LOC: AA 07:11 → SSU 14:38
PROVIDERS: ADMIT Orthopaedic Surgery Adult Reconstructive Orthopaedic Surgery; ATTEND Orthopaedic Surgery Adult Reconstructive Orthopaedic Surgery
PROC: 0QU707Z Supplement Left Upper Femur with Autologous Tissue Substitute, Open Approach (ICD-10-PCS; 2019-04-25)
PROC: 0SRB04A Replacement of Left Hip Joint with Ceramic on Polyethylene Synthetic Substitute, Uncemented, Open Approach (ICD-10-PCS; principal; 2019-04-25 09:45)
DX: M16.12 Unilateral primary osteoarthritis, left hip (principal); E87.1 Hypo-osmolality and hyponatremia; I25.10 Atherosclerotic heart disease of native coronary artery without angina pectoris; E89.2 Postprocedural hypoparathyroidism; E78.00 Pure hypercholesterolemia, unspecified; E78.2 Mixed hyperlipidemia; M48.061 Spinal stenosis, lumbar region without neurogenic claudication; G62.9 Polyneuropathy, unspecified; I44.30 Unspecified atrioventricular block; M85.68 Other cyst of bone, other site; I11.0 Hypertensive heart disease with heart failure; I50.9 Heart failure, unspecified; I48.0 Paroxysmal atrial fibrillation; D64.9 Anemia, unspecified; E66.9 Obesity, unspecified; Z88.6 Allergy status to analgesic agent; Z88.0 Allergy status to penicillin; Z95.0 Presence of cardiac pacemaker; Z85.038 Personal history of other malignant neoplasm of large intestine; Z82.3 Family history of stroke; Z90.49 Acquired absence of other specified parts of digestive tract; Z68.35 Body mass index [BMI] 35.0-35.9, adult; Z85.89 Personal history of malignant neoplasm of other organs and systems; Z79.82 Long term (current) use of aspirin
CPT/HCPCS: 36415; 80048; 84300; 85014; 85018; 85049; 88304; 88311; A9270-GY; C1713; C1776; G8978-GP-CL; G8979-GP-CI; G8987-GO-CK; G8988-GO-CI; J2250; J2270; J2704; J2795; J3010

== ENCOUNTER 2019-04-27 10:41 | Inpatient (IN) | payer MEDICARE ==
[2019-04-27] MEDS ORDERED: Acetaminophen TAB* 325 MG PO PRN (13:40)
[2019-04-27] MEDS ORDERED: Magnesium Hydroxide LIQ* 30 ML UDC PO PRN (13:40)
[2019-04-27] MEDS ORDERED: Senna TAB 8.6 mg* TAB PO PRN (13:40)
[2019-04-27] MEDS: oxyCODONE/Acetamin 5/325 MG* TAB PO PRN ×3 (14:10→20:12)
--- NOTE | 2019-04-27 18:32 | HP ---
ADMISSION HISTORY AND PHYSICAL: DATE OF ADMISSION: 04/27/19 REASON FOR ADMISSION: Left total hip replacement. HISTORY OF PRESENT ILLNESS: Davida Warren is an 84-year-old female. She has a medical history significant for heart block and has a pacemaker. The pacemaker was placed in 2011. She also has a history of a previous myocardial infarct and had a recent stress test showing an ejection fraction of 35%. The patient has had a good deal of difficulty with left hip pain. She had sought out consultation with Dr. Lopes. She had tried and failed conservative treatment. It was decided the best course of action would be for her to have a left total hip replacement. She was admitted to [facility] on 04/25/19 and underwent the left total hip replacement that day. Postoperatively, her blood pressure was slightly lower than normal, so her lisinopril was held. Other than that, she seemed to do okay. She was felt to have physical therapy and occupational therapy needs. She is now being admitted for inpatient rehab so that she might return to independent living. PAST MEDICAL HISTORY: Significant for the aforementioned heart block with a pacemaker placement as well as previous infarct. She has a history of paroxysmal atrial fibrillation, although is not on anticoagulation and had a recent Holter monitor which did not show any episodes of AFib. She has had a history of colon cancer and underwent a right partial colectomy, hypertension, and spinal stenosis. CURRENT MEDICATIONS: Include: 1. Eliquis for DVT prophylaxis. 2. She is also on gabapentin, which she takes normally. 3. Percocet for pain control. 4. Bowel medications. ALLERGIES: PENICILLIN. FAMILY HISTORY: Noncontributory. Her father at the age of 30. Mother had COPD. SOCIAL HISTORY: The patient is a nonsmoker, nondrinker. Lives with her in a 1-story house that is handicap accessible. REVIEW OF SYSTEMS: The patient reports no current shortness of breath or chest pain. PHYSICAL EXAMINATION VITAL SIGNS: The patient's temperature is 97.5, blood pressure is 144/93, pulse 94, respirations 18. HEENT: Her extraocular movements appeared to be intact. Tongue is midline. NECK: Supple. LUNGS: Lung sound clear to auscultation bilaterally. HEART: Heart sounds were regular. S1 and S2 were audible. ABDOMEN: Soft and nontender. EXTREMITIES: Showed normal muscle bulk and tone. Her left hip has a wound, which is clean and dry. Peripheral pulses were intact. NEUROLOGIC: She is awake, alert, and oriented. Muscle strength 5/5 in both upper extremities and right lower extremity. Left lower extremity was 3/5 proximally secondary to pain. FUNCTIONAL EXAM: She transfers with min to mod assist. ASSESSMENT: An 84-year-old woman who has undergone a left total hip replacement. PLAN: Integrate her into a comprehensive and therapeutic rehab program with the following goals: 1. Physical Therapy will work with the patient. They are going to work on functional transfer training, ambulation training with a walker. 2. Occupational Therapy will see the patient, work on her activities of daily living including toileting and toilet transfers. 3. Eliquis for DVT prophylaxis. 4. Adequate analgesia. 5. Her bowels will be regulated. 6. We will resume her Lipitor and her lisinopril if her blood pressure dictates. 7. player services representative will be closely involved to make sure that any services and equipment the patient requires are in place prior to discharge. 8. Family training as appropriate. 9. Continue Neurontin for spinal stenosis. 10. Home with appropriate services. ESTIMATED LENGTH OF STAY: 7 to 10 days. [id number]/[facility] #: [id number] ANA
[2019-04-27] MEDS: Gabapentin CAP(*) 400 MG PO SCH (20:44)
[2019-04-27] MEDS: Docusate CAP* 100 MG PO SCH (20:45)
[2019-04-27] MEDS: Apixaban* 2.5 MG TAB PO SCH (20:45)
[2019-04-28] MEDS: oxyCODONE/Acetamin 5/325 MG* TAB PO PRN ×6 (01:12→22:29)
[2019-04-28 08:24] LABS: ABS Eosinophils 0.2 10^3/ul (0-0.6); ABS Monocytes 0.6 10^3/ul (0-0.8); ABS Neutrophils 7.3 10^3/ul (1.5-7.7); Hematocrit 32 % (35-47); Hemoglobin 10.7 g/dL (12.0-16.0); Mean Corpuscular HGB Conc 34 g/dL (31-36); Mean Corpuscular Hemoglobin 31 pg (27-31); Mean Corpuscular Volume 92 fL (80-97); Platelet Count 198 10^3/uL (150-450); Red Blood Count 3.46 10^6 /uL (3.70-4.87); Red Cell Distribution Width 13 % (10-15); White Blood Count 9.2 10^3/uL (3.5-10.8)
[2019-04-28 08:40] LABS: Albumin/Globulin Ratio 1.2 (1-3); BUN/Creatinine Ratio 31.9 (8-20); EGFR African American 97.8 (>60); EGFR Non-African American 80.9 (>60); Globulin 2.5 g/dL (2-4); Potassium 4.7 mmol/L (3.5-5.0); Total Bilirubin 0.5 mg/dL (0.2-1.0); Total Protein 5.5 g/dL (6.4-8.9)
[2019-04-28] MEDS ORDERED: Lisinopril TAB* 5 MG PO SCH (09:00)
[2019-04-28] MEDS: Apixaban* 2.5 MG TAB PO SCH ×2 (09:08→21:46)
[2019-04-28] MEDS: Docusate CAP* 100 MG PO SCH ×2 (09:08→21:46)
--- NOTE | 2019-04-28 12:33 | PMRUTEAM ---
PMRU: Team Meeting Current Status: Physical Therapy: Current Status Current Rolling Status Partial/Moderate Current Supine <-> Sit Status Substantial/Maximal Current Sit <-> Stand Status Partial/Moderate Current Bed <-> Chair Status Partial/Moderate Transfer/Bed Mobility Rolling Walker Recommended Devices Current Picking Up Object Partial/Moderate Status Current Car Transfer Status Substantial/Maximal Current Ambulation Assistance Partial/Moderate Status Ambulation Assistive Device Rolling Walker Ambulation Conditions Two or More Turns Current Ambulation Distance 2x20' Current Wheelchair Propulsion Not Applicable Ability Status Current Stair Climbing Status Partial/Moderate Stair Climbing Assistive Left Railing,Right Railing Devices Number of Stairs Climbed 4 Current Curb Assistance Status Partial/Moderate Curb Assistive Devices Rolling Walker Objective Comments Pt recalls 3/3 total hip precautions Nursing: Current Status Skin Deviations [Left Hip] Incision Skin Deviation Description [ intact. small amount old bloody drainage distally. Left Hip] washed with soap and water. new telfa and 4x4 applied Rec Therapy: Current Status Summary of Assessment and Pt was pleasant and cooperative in answering Clinical Impression questions on her leisure interest and involvement. Pt identified several interests and shared that she enjoys staying active. Pt was open to pet therapy and leisure visits from staff. Pt was cheerful and bright when discussing her interests. Treatment Goals Pt will engage in leisure activities while on the unit as tolerated Treatment Plan Provide Recreation Therapy services and encourage involvement Social Work: Current Status Discharge Plan return home with home care svs and family support Potential for Family Training pt's is involved and supportive Anticipated Discharge Home Destination Discharge With home care svs and family support OCCUPATIONAL THERAPY: CURRENT STATUS: Set up UB Dressing, max assist LB Dressing , max assist bathing, set up grooming, mod assist toilet xfers, max assist toileting Goals: Physical Therapy: Goals Goals to Be Accomplished in ( 10-14 Days) Goal: Rolling Assistance Independent Goal Supine <-> Sit Status Independent Goal Sit <-> Stand Status Independent Goal Bed <-> Chair Status Independent Transfer/Bed Mobility Rolling Walker Recommended Devices Goal: Picking Up Object Independent Goal: Car Transfer Status Supervision/Touching Goal: Ambulation Assistance Independent Ambulation Assistive Devices Rolling Walker Ambulation Distance (ft) 50' Goal: Wheelchair Propulsion Not Applicable Ability Goal: Stairs Assistance Supervision/Touching Stairs Recommended Devices Two Rails Number of Stairs 4 Goal: Curb Assistance Supervision/Touching Goal: Home Exercise Program Independent Assistance Social Work: Goals Discharge Plan return home with home care svs and family support Potential for Family Training pt's is involved and supportive Anticipated Discharge Home Destination Discharge With home care svs and family support Care Plan: Care Plan DVT Prophylaxis- Improve/Maintain Start: 04/27/19 19:39 Freq: DAILY@0700,1900 Status: Active Target: 05/05/19 Protocol: Activity Type Activity Date Activity User E-Sign Co-Sign Detail Recorded Client Recorded Date Recorded By Document 04/28/19 09:00 [id number] 04/28/19 11:43 [id number] 04/28/19 09:00 PMRU Outcome: DVT Prophylaxis Current DVT Outcome/Goals Remains Free of DVT Complies with DVT Prophylaxis /Treatment Demonstrates Knowledge of DVT Prevention/ Treatment TEDS Stockings on Every AM, Off at HS Progression Toward Outcome/Goals Progressing Discharge Planning - Improve/Maintain Start: 04/27/19 19:39 Freq: DAILY@0700,1900 Status: Active Target: 05/05/19 Protocol: Activity Type Activity Date Activity User E-Sign Co-Sign Detail Recorded Client Recorded Date Recorded By Document 04/28/19 09:00 [id number] 04/28/19 11:43 [id number] 04/28/19 09:00 PMRU Outcome: Discharge Planning Current Discharge Planning Outcome/Goals Demonstrates Understanding of Discharge Plan Homecare Referral - See Comment Progression Toward Outcome/Goals Progressing Education-Improve/Maintain Start: 04/27/19 19:39 Freq: DAILY@0700,1900 Status: Active Target: 05/05/19 Protocol: Activity Type Activity Date Activity User E-Sign Co-Sign Detail Recorded Client Recorded Date Recorded By Document 04/28/19 09:00 [id number] 04/28/19 11:43 [id number] 04/28/19 09:00 PMRU Outcome: Education Current Education Outcome/Goals Demonstrate/ Verbalize Understanding of Written Discharge Instructions Demonstrates Skills Encourage Questions Progression Toward Outcome/Goals Progressing /GI-Improve/Maintain Start: 04/27/19 19:39 Freq: DAILY@0700,1900 Status: Active Target: 05/05/19 Protocol: Activity Type Activity Date Activity User E-Sign Co-Sign Detail Recorded Client Recorded Date Recorded By Document 04/28/19 09:00 [id number] 04/28/19 11:43 [id number] 04/28/19 09:00 PMRU Outcome: Genitourinary/ Gastrointestinal Current Gastrointestinal Outcome/Goals Maintain/ Achieve Bowel Regularity in Accordance with Pt's Baseline Remain Free of Emesis Prevent Constipation Progression Toward Outcome/Goals Progressing Current Genitourinary Outcome/Goals Maintain/ Achieve Urinary Continence Maintain/ Achieve Adequate Urinary Output Remain Free of Hospital- Acquired UTI Progression Toward Outcome/Goals Progressing Medication Administration Start: 04/27/19 19:39 Freq: DAILY@0700,1900 Status: Active Target: 05/05/19 Protocol: Activity Type Activity Date Activity User E-Sign Co-Sign Detail Recorded Client Recorded Date Recorded By Document 04/28/19 09:00 [id number] 04/28/19 11:43 [id number] 04/28/19 09:00 PMRU Outcome: Medication Administration Assess Patient Knowledge/Teach Med Yes Education for all Meds Current Coffee Weigher Outcome/Goals Patient Independent with Medication Administration at Home Family/ Caregiver Administer Medications at Home Demonstrates Understanding Demonstrates Lovenox Administration Progression Towards Outcome/Goals Progressing Is Patient Going Home on Lovenox? No Mobility- Improve/Maintain Start: 04/27/19 15:14 Freq: DAILY@00,1900 Status: Active Target: 04/28/19 Protocol: Activity Type Activity Date Activity User E-Sign Co-Sign Detail Recorded Client Recorded Date Recorded By Document 04/27/19 15:14 [id number] 04/27/19 15:15 [id number] 04/27/19 15:14 PMRU Outcome: Mobility Physical Therapy Evaluation and Yes Treatment Activity OOB with Assistance Yes WBAT Yes NWB No TTWB No Device Yes Assistance Yes Patient to be seen 5x/wk for 60-120 min/ Therex day for: Mobility Training Gait Training Balance Other Other Therapy Comment discharge training, discharge planning Current Mobility Outcome/Goals Improve Mobility Status Demonstrates Proper Use of Assistive Devices Progression Toward Outcome/Goals Goal Initiation Bed Mobility Yes: independent Transfers Yes: independent with RW Gait x ft Yes: 50' independent with RW W/C Mobility x ft No Up/Down Stairs Yes: 4 steps with 2 rails, supervision With HEP Yes: independent Pain/Comfort- Improve/Maintain Start: 04/27/19 19:39 Freq: DAILY@0700,1900 Status: Active Target: 05/05/19 Protocol: Activity Type Activity Date Activity User E-Sign Co-Sign Detail Recorded Client Recorded Date Recorded By Document 04/28/19 09:00 [id number] 04/28/19 11:43 [id number] 04/28/19 09:00 PMRU Outcome: Pain/Comfort Current Pain/Comfort Outcome/Goals Demonstrates Knowledge and Use of Available Comfort Measures Achieves Acceptable Comfort/Pain Level as Determined by Patient/Condit Maintain Comfort Level Allowing Patient to Fully Participate in Rehab Progression Toward Outcome/Goals Progressing Rec Therapy- Improve/Maintain Start: 04/27/19 16:28 Freq: DAILY@0700,1900 Status: Active Target: 05/02/19 Protocol: Activity Type Activity Date Activity User E-Sign Co-Sign Detail Recorded Client Recorded Date Recorded By Document 04/27/19 16:58 [id number] 04/27/19 16:58 [id number] 04/27/19 16:58 PMRU Outcome: Recreation Therapy Current Rec Ther Outcome/Goals Complete Rec Therapy Assessment Meet with Patient Regularly for Support Encourage Leisure Involvement Progression Toward Outcome/Goals Goal Initiation Safety- Improve/Maintain Start: 04/27/19 13:25 Freq: DAILY@0700,1900 Status: Active Target: 04/28/19 Protocol: Activity Type Activity Date Activity User E-Sign Co-Sign Detail Recorded Client Recorded Date Recorded By Document 04/28/19 09:00 [id number] 04/28/19 11:43 [id number] 04/28/19 09:00 PMRU Outcome: Safety Current Safety Outcome/Goals Remain Free of Injury or Harm Cooperates with Safety Measures for Least Restrictive Environment Prevent Falls/ Injury Progression Toward Outcome/Goals Progressing Skin- Improve/Maintain Start: 04/27/19 19:39 Freq: DAILY@0700,1900 Status: Active Target: 05/05/19 Protocol: Activity Type Activity Date Activity User E-Sign Co-Sign Detail Recorded Client Recorded Date Recorded By Document 04/28/19 09:00 [id number] 04/28/19 11:43 [id number] 04/28/19 09:00 PMRU Outcome: Skin Skin Risk Level Mild Risk Skin Orders Dressing Change Heels Off Bed Turn/Position q2hr While in Bed Skin Orders Comment drsg to l hip changed this am . scant old bloody drainage noted. telfa, 4x4 applied Current Skin Outcome/Goals Maintain/ Improve Skin Integrity Free from Pressure Injury Surgical Incisions Healing Progression Toward Outcome/Goals Progressing - Interdisciplinary Staff Present OT Staff Present: Esperanza Castro PT Staff Present: Bri Bruner Rec Therapy Staff Present: Betty Damico Medicine Note: Length of Stay: 7 days Anticipated Discharge Destination: Home Tentative Discharge Date: 05/05/19 Discharged to: Home
[2019-04-28] MEDS ORDERED: Polyethylene Glycol 3350* 17 GM PACKET PO ONE (16:00)
[2019-04-28] MEDS ORDERED: NS 0.9% 1000 ML** 1,000 ML IV SCH (16:00)
[2019-04-28] MEDS: Atorvastatin* 40 MG TAB PO SCH (16:42)
--- NOTE | 2019-04-28 17:30 | PN ---
Progress Note Date of Service: 04/28/19 Note: ROGERIO CHAVIS was visited. Therapy notes read and reviewed. She was discussed in interdisciplinary plan of care rounds. She states she normally takes Miralax daily and would like to resume. Feels like she is doing ok otherwise. While working in therapy, her BP dropped a bit, after re-starting Lisinopril today Current Medications: Active Medications Generic Name Dose Route Start Last Admin Trade Name Freq PRN Reason Stop Dose Admin Acetaminophen 650 mg 04/27/19 13:40 Tylenol Tab* PO Q6H PRN MILD PAIN or TEMP > 100.4 Apixaban 2.5 mg 04/27/19 21:00 04/28/19 09:08 Eliquis* PO 2.5 mg BID SALLIE Administration Atorvastatin Calcium 40 mg 04/28/19 17:00 04/28/19 16:42 Lipitor* PO 40 mg 1700 SALLIE Administration Docusate Sodium 100 mg 04/27/19 21:00 04/28/19 09:08 Colace Cap* PO 100 mg BID SALLIE Administration Gabapentin 2,400 mg 04/27/19 21:00 04/27/19 20:44 Neurontin Cap(*) PO 2,400 mg BEDTIME SALLIE Administration Sodium Chloride 1,000 mls @ 75 mls/hr 04/28/19 16:00 04/28/19 16:42 Ns 0.9% 1000 Ml IV 75 mls/hr PER RATE SALLIE Administration Magnesium Hydroxide 30 ml 04/27/19 13:40 Milk Of Magnesia Liq* PO Q6H PRN CONSTIPATION Oxycodone/Acetaminophen 1 tab 04/27/19 13:46 04/28/19 01:12 Percocet 5/325 Tab* PO 1 tab Q4H PRN Administration PAIN - MODERATE Oxycodone/Acetaminophen 2 tab 04/27/19 13:46 04/28/19 12:53 Percocet 5/325 Tab* PO 2 tab Q4H PRN Administration PAIN - SEVERE Polyethylene Glycol/Electrolytes 17 gm 04/29/19 09:00 Miralax* PO DAILY SALLIE Senna 2 tab 04/27/19 13:40 Senokot 8.6 Mg Tab* PO BEDTIME PRN CONSTIPATION Vital Signs: Vital Signs Temp Pulse Resp BP Pulse Ox 97.7 F 63 18 123/71 90 04/28/19 16:00 04/28/19 16:00 04/28/19 16:00 04/28/19 16:00 04/28/19 16:00 Lab Results: Laboratory Results - last 24 hr 04/28/19 04/28/19 08:18 08:18 WBC 9.2 RBC 3.46 L Hgb 10.7 L Hct 32 L MCV 92 MCH 31 MCHC 34 RDW 13 Plt Count 198 MPV 8.0 Neut % (Auto) 79.6 Lymph % (Auto) 11.0 [place] % (Auto) 6.9 Eos % (Auto) 2.0 Baso % (Auto) 0.5 Absolute Neuts (auto) 7.3 Absolute Lymphs (auto) 1.0 Absolute Monos (auto) 0.6 Absolute Eos (auto) 0.2 Absolute Basos (auto) 0.0 Absolute Nucleated RBC 0.0 Nucleated RBC % 0.0 Sodium 133 L Potassium 4.7 Chloride 101 Carbon Dioxide 29 Anion Gap 3 BUN 22 Creatinine 0.69 Est GFR ( Amer) 97.8 Est GFR (Non-Af Amer) 80.9 BUN/Creatinine Ratio 31.9 H Glucose 107 H Calcium 9.0 Total Bilirubin 0.50 AST 25 ALT 37 Alkaline Phosphatase 70 Total Protein 5.5 L Albumin 3.0 L Globulin 2.5 Albumin/Globulin Ratio 1.2 Exam: GENERAL: No apparent distress LUNGS: Clear bilaterally HEART: regular rhythm ABDOMEN: Soft EXTREMITIES: Left hip wound C/D/I NEUROLOGIC: A&O. Sensation intact. Strength 5/5 except LLE which is 3/5 proximally, DF 4/5 Assessment/Plan: 1. Left total Hip Replacement: PT/OT. WBAT. 2. Heartblock: Pacemaker functioning 3. Spinal Stenosis: On Gabapentin 4. Hypotension: will hold Lisinopril and give IV fluids 5. DVT Prophylaxis: Eliquis 6. Advance Directives: Full code. 04/28/19 17:32 04/28/19 17:34
[2019-04-28] MEDS: Gabapentin CAP(*) 400 MG PO SCH (21:45)
[2019-04-29] MEDS: oxyCODONE/Acetamin 5/325 MG* TAB PO PRN ×4 (03:24→21:06)
[2019-04-29] MEDS: Polyethylene Glycol 3350* 17 GM PACKET PO SCH (10:31)
[2019-04-29] MEDS: Apixaban* 2.5 MG TAB PO SCH ×2 (10:31→21:06)
[2019-04-29] MEDS: Docusate CAP* 100 MG PO SCH ×2 (10:31→21:06)
[2019-04-29] MEDS: Atorvastatin* 40 MG TAB PO SCH (17:23)
--- NOTE | 2019-04-29 17:25 | PN ---
Progress Note Date of Service: 04/29/19 Note: ROGERIO CHAVIS was visited. Therapy notes read and reviewed. Pain controlled and a little better. She has not had a BM yet, on Miralax Current Medications: Active Medications Generic Name Dose Route Start Last Admin Trade Name Freq PRN Reason Stop Dose Admin Acetaminophen 650 mg 04/27/19 13:40 Tylenol Tab* PO Q6H PRN MILD PAIN or TEMP > 100.4 Apixaban 2.5 mg 04/27/19 21:00 04/29/19 10:31 Eliquis* PO 2.5 mg BID SALLIE Administration Atorvastatin Calcium 40 mg 04/28/19 17:00 04/29/19 17:23 Lipitor* PO 40 mg 1700 SALLIE Administration Docusate Sodium 100 mg 04/27/19 21:00 04/29/19 10:31 Colace Cap* PO 100 mg BID SALLIE Administration Gabapentin 2,400 mg 04/27/19 21:00 04/28/19 21:45 Neurontin Cap(*) PO 2,400 mg BEDTIME SALLIE Administration Magnesium Hydroxide 30 ml 04/27/19 13:40 04/28/19 21:47 Milk Of Magnesia Liq* PO 30 ml Q6H PRN Administration CONSTIPATION Oxycodone/Acetaminophen 1 tab 04/27/19 13:46 04/28/19 17:38 Percocet 5/325 Tab* PO 1 tab Q4H PRN Administration PAIN - MODERATE Oxycodone/Acetaminophen 2 tab 04/27/19 13:46 04/29/19 14:00 Percocet 5/325 Tab* PO 2 tab Q4H PRN Administration PAIN - SEVERE Polyethylene Glycol/Electrolytes 17 gm 04/29/19 09:00 04/29/19 10:31 Miralax* PO 17 gm DAILY SALLIE Administration Senna 2 tab 04/27/19 13:40 Senokot 8.6 Mg Tab* PO BEDTIME PRN CONSTIPATION Vital Signs: Vital Signs Temp Pulse Resp BP Pulse Ox 97.9 F 83 18 114/55 95 04/29/19 05:05 04/29/19 05:05 04/29/19 16:10 04/29/19 05:05 04/29/19 15:53 Exam: GENERAL: No apparent distress LUNGS: Clear bilaterally HEART: regular rhythm ABDOMEN: Soft EXTREMITIES: Left hip wound C/D/I NEUROLOGIC: A&O. Sensation intact. Strength 5/5 except LLE which is 3/5 proximally, DF 4/5 Assessment/Plan: 1. Left total Hip Replacement: PT/OT. WBAT. 2. Heartblock: Pacemaker functioning 3. Spinal Stenosis: On Gabapentin 4. Hypotension: holding Lisinopril 5. DVT Prophylaxis: Eliquis 6. Advance Directives: Full code. 04/29/19 17:26
[2019-04-29] MEDS: Gabapentin CAP(*) 400 MG PO SCH (21:06)
[2019-04-30] MEDS: oxyCODONE/Acetamin 5/325 MG* TAB PO PRN ×4 (04:49→19:07)
[2019-04-30] MEDS: Apixaban* 2.5 MG TAB PO SCH ×2 (08:51→20:41)
[2019-04-30] MEDS: Docusate CAP* 100 MG PO SCH ×2 (08:51→20:41)
[2019-04-30] MEDS: Polyethylene Glycol 3350* 17 GM PACKET PO SCH (08:51)
[2019-04-30] MEDS ORDERED: Bisacodyl SUPP* 10 MG SUPP PR PRN (14:56)
[2019-04-30] MEDS: Atorvastatin* 40 MG TAB PO SCH (17:12)
--- NOTE | 2019-04-30 20:40 | PN ---
Progress Note Date of Service: 04/30/19 Note: ROGERIO CHAVIS was visited. Therapy notes read and reviewed. Had a small BM today. Pain fairly well controlled. Otherwise doing well. Current Medications: Active Medications Generic Name Dose Route Start Last Admin Trade Name Freq PRN Reason Stop Dose Admin Acetaminophen 650 mg 04/27/19 13:40 Tylenol Tab* PO Q6H PRN MILD PAIN or TEMP > 100.4 Apixaban 2.5 mg 04/27/19 21:00 04/30/19 08:51 Eliquis* PO 2.5 mg BID SALLIE Administration Atorvastatin Calcium 40 mg 04/28/19 17:00 04/30/19 17:12 Lipitor* PO 40 mg 1700 SALLIE Administration Bisacodyl 10 mg 04/30/19 14:56 Dulcolax Supp* [place] DAILY PRN CONSTIPATION Docusate Sodium 100 mg 04/27/19 21:00 04/30/19 08:51 Colace Cap* PO 100 mg BID SALLIE Administration Gabapentin 2,400 mg 04/27/19 21:00 04/29/19 21:06 Neurontin Cap(*) PO 2,400 mg BEDTIME SALLIE Administration Magnesium Hydroxide 30 ml 04/27/19 13:40 04/28/19 21:47 Milk Of Magnesia Liq* PO 30 ml Q6H PRN Administration CONSTIPATION Oxycodone/Acetaminophen 1 tab 04/27/19 13:46 04/28/19 17:38 Percocet 5/325 Tab* PO 1 tab Q4H PRN Administration PAIN - MODERATE Oxycodone/Acetaminophen 2 tab 04/27/19 13:46 04/30/19 19:07 Percocet 5/325 Tab* PO 2 tab Q4H PRN Administration PAIN - SEVERE Polyethylene Glycol/Electrolytes 17 gm 04/29/19 09:00 04/30/19 08:51 Miralax* PO 17 gm DAILY SALLIE Administration Senna 2 tab 04/27/19 13:40 Senokot 8.6 Mg Tab* PO BEDTIME PRN CONSTIPATION Vital Signs: Vital Signs Temp Pulse Resp BP Pulse Ox 97.6 F 88 20 147/67 100 04/30/19 15:43 04/30/19 15:43 04/30/19 19:07 04/30/19 15:43 04/30/19 15:43 Exam: GENERAL: No apparent distress LUNGS: Clear bilaterally HEART: regular rhythm ABDOMEN: Soft EXTREMITIES: Left hip wound C/D/I NEUROLOGIC: A&O. Sensation intact. Strength 5/5 except LLE which is 3/5 proximally, DF 4/5 Assessment/Plan: 1. Left total Hip Replacement: PT/OT. WBAT. 2. Heartblock: Pacemaker functioning 3. Spinal Stenosis: On Gabapentin 4. Hypotension: holding Lisinopril 5. DVT Prophylaxis: Eliquis 6. Advance Directives: Full code. 04/30/19 20:40
[2019-04-30] MEDS: Gabapentin CAP(*) 400 MG PO SCH (20:41)
[2019-05-01] MEDS: oxyCODONE/Acetamin 5/325 MG* TAB PO PRN ×5 (03:12→21:38)
[2019-05-01] MEDS: Polyethylene Glycol 3350* 17 GM PACKET PO SCH (08:05)
[2019-05-01] MEDS: Docusate CAP* 100 MG PO SCH ×2 (08:05→21:38)
[2019-05-01] MEDS: Apixaban* 2.5 MG TAB PO SCH ×2 (08:06→21:38)
[2019-05-01] MEDS: Atorvastatin* 40 MG TAB PO SCH (16:50)
--- NOTE | 2019-05-01 16:58 | PN ---
Progress Note Date of Service: 05/01/19 Note: ROGEIRO CHAVIS was visited. Therapy notes read and reviewed. She is actually moving pretty well. She otherwise has no complaints Current Medications: Active Medications Generic Name Dose Route Start Last Admin Trade Name Freq PRN Reason Stop Dose Admin Acetaminophen 650 mg 04/27/19 13:40 Tylenol Tab* PO Q6H PRN MILD PAIN or TEMP > 100.4 Apixaban 2.5 mg 04/27/19 21:00 05/01/19 08:06 Eliquis* PO 2.5 mg BID SALLIE Administration Atorvastatin Calcium 40 mg 04/28/19 17:00 05/01/19 16:50 Lipitor* PO 40 mg 1700 SALLIE Administration Bisacodyl 10 mg 04/30/19 14:56 Dulcolax Supp* [place] DAILY PRN CONSTIPATION Docusate Sodium 100 mg 04/27/19 21:00 05/01/19 08:05 Colace Cap* PO 100 mg BID SALLIE Administration Gabapentin 2,400 mg 04/27/19 21:00 04/30/19 20:41 Neurontin Cap(*) PO 2,400 mg BEDTIME SALLIE Administration Magnesium Hydroxide 30 ml 04/27/19 13:40 04/28/19 21:47 Milk Of Magnesia Liq* PO 30 ml Q6H PRN Administration CONSTIPATION Oxycodone/Acetaminophen 1 tab 04/27/19 13:46 04/28/19 17:38 Percocet 5/325 Tab* PO 1 tab Q4H PRN Administration PAIN - MODERATE Oxycodone/Acetaminophen 2 tab 04/27/19 13:46 05/01/19 16:50 Percocet 5/325 Tab* PO 2 tab Q4H PRN Administration PAIN - SEVERE Polyethylene Glycol/Electrolytes 17 gm 04/29/19 09:00 05/01/19 08:05 Miralax* PO 17 gm DAILY SALLIE Administration Senna 2 tab 04/27/19 13:40 04/30/19 20:41 Senokot 8.6 Mg Tab* PO 2 tab BEDTIME PRN Administration CONSTIPATION Vital Signs: Vital Signs Temp Pulse Resp BP Pulse Ox 97.7 F 77 18 118/59 94 05/01/19 05:22 05/01/19 05:22 05/01/19 16:50 05/01/19 05:22 05/01/19 05:22 Exam: GENERAL: No apparent distress LUNGS: Clear bilaterally HEART: regular rhythm ABDOMEN: Soft EXTREMITIES: Left hip wound C/D/I NEUROLOGIC: A&O. Sensation intact. Strength 5/5 except LLE which is 3/5 proximally, DF 4/5 Assessment/Plan: 1. Left total Hip Replacement: PT/OT. WBAT. 2. Heartblock: Pacemaker functioning 3. Spinal Stenosis: On Gabapentin 4. Hypotension: holding Lisinopril 5. DVT Prophylaxis: Eliquis 6. Advance Directives: Full code. 05/01/19 16:59
[2019-05-01] MEDS: Gabapentin CAP(*) 400 MG PO SCH (21:39)
[2019-05-02] MEDS: oxyCODONE/Acetamin 5/325 MG* TAB PO PRN ×4 (02:35→16:49)
[2019-05-02] MEDS: Polyethylene Glycol 3350* 17 GM PACKET PO SCH (08:09)
[2019-05-02] MEDS: Docusate CAP* 100 MG PO SCH ×2 (08:09→20:57)
[2019-05-02] MEDS: Apixaban* 2.5 MG TAB PO SCH ×2 (08:09→20:57)
--- NOTE | 2019-05-02 12:36 | PMRUTEAM ---
PMRU: Team Meeting Current Status: Physical Therapy: Current Status Current Rolling Status Supervision/Touching Current Supine <-> Sit Status Supervision/Touching Current Sit <-> Stand Status Supervision/Touching Current Bed <-> Chair Status Supervision/Touching Transfer/Bed Mobility Rolling Walker Recommended Devices Current Picking Up Object Partial/Moderate Status Current Car Transfer Status Substantial/Maximal Current Ambulation Assistance Supervision/Touching Status Ambulation Assistive Device Rolling Walker Ambulation Conditions Two or More Turns Current Ambulation Distance 45' Ambulation Comment Short step slightly antalgic reciprocal gait. Improved Current Wheelchair Propulsion Not Applicable Ability Status Current Stair Climbing Status Supervision/Touching Stair Climbing Assistive Left Railing,Right Railing Devices Number of Stairs Climbed 4 Current Curb Assistance Status Partial/Moderate Curb Assistive Devices Rolling Walker Objective Comments Pt recalls 3/3 total hip precautions Occupational Therapy: Current Status Current Upper Body Dressing Setup or Clean-up Assist Status Current Lower Body Dressing Partial/Moderate Status Current Footwear Status Partial/Moderate Current Bathing Status Supervision/Touching Current Grooming Status Setup or Clean-up Assist Current Toileting Status Supervision/Touching Current Toilet Transfer Status Supervision/Touching Current Eating Status Independent Nursing: Current Status Skin Deviations [Left Hip] Incision Skin Deviation Description [ intact and open to air Left Hip] Bladder Current Status inc/voids Bowel Current Status bm this am Nutrition Current Status adequate Medication Current Status needs reinforcement Rec Therapy: Current Status Summary of Assessment and Recreation Therapy assessement complete and pt is Clinical Impression aware of services available. Pt was interested in reading materials which were provided to her and she has been using. Pt is open to continued leisure visits and pet therapy. Treatment Goals Pt will engage in leisure activities while on the unit as tolerated Treatment Plan Provide Recreation Therapy services and encourage involvement Social Work: Current Status Discharge Plan Return home with home care svs and family support Potential for Family Training pt's is involved and supportive Anticipated Discharge Home Destination Discharge With return home with home care svs and family support Nutrition: Current Status Monitoring This 84 yo F admitted for rehab s/p L hip arthroplasty on 04/25. Pt is on a regular unrestricted diet with intake at meals typically > 90%. Noted with good skin integrity and regular bowels. Full nutrition assessment to follow on . Goals: Physical Therapy: Goals Goals to Be Accomplished in ( 10-14 Days) Goal: Rolling Assistance Independent Goal Supine <-> Sit Status Independent Goal Sit <-> Stand Status Independent Goal Bed <-> Chair Status Independent Transfer/Bed Mobility Rolling Walker Recommended Devices Goal: Picking Up Object Independent Goal: Car Transfer Status Supervision/Touching Goal: Ambulation Assistance Independent Ambulation Assistive Devices Rolling Walker Ambulation Distance (ft) 50' Goal: Wheelchair Propulsion Not Applicable Ability Goal: Stairs Assistance Supervision/Touching Stairs Recommended Devices Two Rails Number of Stairs 3 Goal: Curb Assistance Supervision/Touching Goal: Home Exercise Program Independent Assistance Occupational Therapy: Goals Goals to be Completed in (Days 7-10 days ) Goal Upper Body Dressing Independent Routine Goal Lower Body Dressing Independent Routine Goal Footwear Status Independent Goal Bathing Routine (OT) Independent Goal Grooming Routine Independent Goal Toilet Hygiene and Independent Clothing Management Routine Goal Toilet Transfer Routine Independent Goal Functional Transfers for Independent ADL Goal Feeding Routine Independent Goal Light Housekeeping Tasks Independent Nutrition: Goals Intervention Goals Goals to follow initial assessment on 05/04. Social Work: Goals Discharge Plan Return home with home care svs and family support Potential for Family Training pt's is involved and supportive Anticipated Discharge Home Destination Discharge With return home with home care svs and family support Nursing: Goals Bladder Goal independent with depends Bowel Goal independent Nutrition Goal 100% of all meals consumed Medication Goal independent Care Plan: Care Plan ADL's - Improve/Maintain Start: 04/28/19 14:31 Freq: DAILY@0700,1900 Status: Active Target: 05/05/19 Protocol: Activity Type Activity Date Activity User E-Sign Co-Sign Detail Recorded Client Recorded Date Recorded By Document 04/29/19 09:48 [id number] [id number] 04/29/19 09:49 [id number] 04/29/19 09:48 PM Outcome: ADL's/ADL Transfers Orders/Interventions Occupational Therapy Evaluation & Treatment Device Yes Address Deficits Secondary To: L MARY CARMEN Patient to receive OT 5x/wk for 60-120 Therex min/day Self Care Management Group Therapy Neuromuscular ReEducation UE/LE ADL's with Assist Yes: Independent ADL Transfers with Assist Yes: Independent Toileting: Transfers,Clothing Management Yes: ,Hygeine w/Assist independent Light Kitchen/Laundry w/Assist Yes: Independent Other Outcome/Goals Pt tolerates OT tx session well this date. SHe uses AE to complete LB ADL routine with partial assist from commercial underwriter. Will continue to use AE for pt to maximize independence. Progression Toward Outcome/Goals Progressing DVT Prophylaxis- Improve/Maintain Start: 04/27/19 19:39 Freq: DAILY@699,0 Status: Active Target: 05/05/19 Protocol: Activity Type Activity Date Activity User E-Sign Co-Sign Detail Recorded Client Recorded Date Recorded By Document 05/02/19 09:00 [id number] 05/02/19 10:45 [id number] 05/02/19 09:00 PMRU Outcome: DVT Prophylaxis Current DVT Outcome/Goals Remains Free of DVT Complies with DVT Prophylaxis /Treatment Demonstrates Knowledge of DVT Prevention/ Treatment Progression Toward Outcome/Goals Progressing Discharge Planning - Improve/Maintain Start: 04/27/19 19:39 Freq: [id number]@[id number] Status: Active Target: 05/05/19 Protocol: Activity Type Activity Date Activity User E-Sign Co-Sign Detail Recorded Client Recorded Date Recorded By Document 05/02/19 09:00 [id number] 05/02/19 10:45 [id number] 05/02/19 09:00 PMRU Outcome: Discharge Planning Current Discharge Planning Outcome/Goals Demonstrates Understanding of Discharge Plan Homecare Referral - See Comment Progression Toward Outcome/Goals Progressing Education-Improve/Maintain Start: 04/27/19 19:39 Freq: DAILY@699,0 Status: Active Target: 05/05/19 Protocol: Activity Type Activity Date Activity User E-Sign Co-Sign Detail Recorded Client Recorded Date Recorded By Document 05/02/19 09:00 [id number] 05/02/19 10:45 [id number] 05/02/19 09:00 PMRU Outcome: Education Current Education Outcome/Goals Demonstrate/ Verbalize Understanding of Written Discharge Instructions Demonstrates Skills Encourage Questions Progression Toward Outcome/Goals Progressing /GI-Improve/Maintain Start: 04/27/19 19:39 Freq: DAILY@[id number],1900 Status: Active Target: 05/05/19 Protocol: Activity Type Activity Date Activity User E-Sign Co-Sign Detail Recorded Client Recorded Date Recorded By Document 05/02/19 09:00 [id number] [email or web address] 05/02/19 10:45 [id number] 05/02/19 09:00 PMRU Outcome: Genitourinary/ Gastrointestinal Current Gastrointestinal Outcome/Goals Maintain/ Achieve Bowel Regularity in Accordance with Pt's Baseline Remain Free of Emesis Prevent Constipation Bowel Regularity at Home Laxatives as Ordered Progression Toward Outcome/Goals Progressing Current Genitourinary Outcome/Goals Maintain/ Achieve Adequate Urinary Output Remain Free of Hospital- Acquired UTI Progression Toward Outcome/Goals Progressing Medication Administration Start: 04/27/19 19:39 Freq: DAILY@0700,1900 Status: Active Target: 05/05/19 Protocol: Activity Type Activity Date Activity User E-Sign Co-Sign Detail Recorded Client Recorded Date Recorded By Document 05/02/19 09:00 [id number] 05/02/19 10:45 [id number] 05/02/19 09:00 PMRU Outcome: Medication Administration Assess Patient Knowledge/Teach Med Yes Education for all Meds Current City Controller Outcome/Goals Patient Independent with Medication Administration at Home Demonstrates Understanding Progression Towards Outcome/Goals Progressing Outcome/Goals Met Patient Independent with Medication Administration at Home Demonstrates Understanding Is Patient Going Home on Lovenox? No Mobility- Improve/Maintain Start: 04/27/19 15:14 Freq: DAILY@[id number] Status: Active Target: 04/28/19 Protocol: Activity Type Activity Date Activity User E-Sign Co-Sign Detail Recorded Client Recorded Date Recorded By Document 04/28/19 16:51 [id number] 04/28/19 16:51 [id number] 04/28/19 16:51 PMRU Outcome: Mobility Physical Therapy Evaluation and Yes Treatment Activity OOB with Assistance Yes WBAT Yes NWB No TTWB No Device Yes Assistance Yes Patient to be seen 5x/wk for 60-120 min/ Therex day for: Mobility Training Gait Training Balance Other Other Therapy Comment discharge training, discharge planning Current Mobility Outcome/Goals Improve Mobility Status Demonstrates Proper Use of Assistive Devices Progression Toward Outcome/Goals Goal Initiation Bed Mobility Yes: independent Transfers Yes: independent with RW Gait x ft Yes: 50' independent with RW W/C Mobility x ft No Up/Down Stairs Yes: 4 steps with 2 rails, supervision With HEP Yes: independent Pain/Comfort- Improve/Maintain Start: 04/27/19 19:39 Freq: DAILY@0700,1900 Status: Active Target: 05/05/19 Protocol: Activity Type Activity Date Activity User E-Sign Co-Sign Detail Recorded Client Recorded Date Recorded By Document 05/02/19 09:[id number] [email or web address] 05/02/19 10:45 [id number] 05/02/19 09:00 PMRU Outcome: Pain/Comfort Current Pain/Comfort Outcome/Goals Demonstrates Knowledge and Use of Available Comfort Measures Achieves Acceptable Comfort/Pain Level as Determined by Patient/Condit Maintain Comfort Level Allowing Patient to Fully Participate in Rehab Progression Toward Outcome/Goals Progressing Rec Therapy- Improve/Maintain Start: 04/27/19 16:28 Freq: DAILY@0700,1900 Status: Active Target: 05/02/19 Protocol: Activity Type Activity Date Activity User E-Sign Co-Sign Detail Recorded Client Recorded Date Recorded By Document 05/01/19 15:59 [id number] [email or web address] 05/01/19 16:01 [id number] 05/01/19 15:59 PMRU Outcome: Recreation Therapy Current Rec Ther Outcome/Goals Complete Rec Therapy Assessment Meet with Patient Regularly for Support Encourage Leisure Involvement Progression Toward Outcome/Goals Progressing Lack of Progression Comment Provided pt with leisure visit, pt was in her room reading a book provided to her . Pt shared that she has really enjoyed reading the book. Pt was engaged and pleasant throughout conversation. Outcome/Goals Met Complete Rec Therapy Assessment Outcome/Goals Met Comment Recreation Therapy assessment complete Safety- Improve/Maintain Start: 04/27/19 13:25 Freq: DAILY@0700,1900 Status: Active Target: 05/05/19 Protocol: Activity Type Activity Date Activity User E-Sign Co-Sign Detail Recorded Client Recorded Date Recorded By Document 05/02/19 09:00 [id number] 05/02/19 10:45 [id number] 05/02/19 09:00 PMRU Outcome: Safety Current Safety Outcome/Goals Remain Free of Injury or Harm Cooperates with Safety Measures for Least Restrictive Environment Prevent Falls/ Injury Progression Toward Outcome/Goals Progressing Skin- Improve/Maintain Start: 04/27/19 19:39 Freq: DAILY@0700,1900 Status: Active Target: 05/05/19 Protocol: Activity Type Activity Date Activity User E-Sign Co-Sign Detail Recorded Client Recorded Date Recorded By Document 05/02/19 09:00 [id number] 05/02/19 10:45 [id number] 05/02/19 09:00 PMRU Outcome: Skin Skin Risk Level No Risk Skin Orders Heels Off Bed Turn/Position q2hr While in Bed Current Skin Outcome/Goals Maintain/ Improve Skin Integrity Free from Pressure Injury Surgical Incisions Healing Progression Toward Outcome/Goals Progressing - Interdisciplinary Staff Present Certified Veterinary Technician/Social Work Staff Present: Ailyn Boucher LMSW Nursing Staff Present: Kate Borges, RN OT Staff Present: Esperanza Castro PT Staff Present: Bri Bruner Rec Therapy Staff Present: Betty Damico Medicine Note: Length of Stay: 2 days Anticipated Discharge Destination: Home Tentative Discharge Date: 05/04/19 Discharged to: Home
[2019-05-02] MEDS: Atorvastatin* 40 MG TAB PO SCH (16:46)
--- NOTE | 2019-05-02 18:41 | PN ---
Progress Note Date of Service: 05/02/19 Note: ROGERIO CHAVIS was visited. Therapy notes read and reviewed. She was discussed in interdisciplinary team rounds. She feels that her legs are swollen but tells me Lasix has not helped in the past Current Medications: Active Medications Generic Name Dose Route Start Last Admin Trade Name Freq PRN Reason Stop Dose Admin Acetaminophen 650 mg 04/27/19 13:40 Tylenol Tab* PO Q6H PRN MILD PAIN or TEMP > 100.4 Apixaban 2.5 mg 04/27/19 21:00 05/02/19 08:09 Eliquis* PO 2.5 mg BID SALLIE Administration Atorvastatin Calcium 40 mg 04/28/19 17:00 05/02/19 16:46 Lipitor* PO 40 mg 1700 SALLIE Administration Bisacodyl 10 mg 04/30/19 14:56 Dulcolax Supp* DC DAILY PRN CONSTIPATION Docusate Sodium 100 mg 04/27/19 21:00 05/02/19 08:09 Colace Cap* PO 100 mg BID SALLIE Administration Gabapentin 2,400 mg 04/27/19 21:00 05/01/19 21:39 Neurontin Cap(*) PO 2,400 mg BEDTIME SALLIE Administration Magnesium Hydroxide 30 ml 04/27/19 13:40 04/28/19 21:47 Milk Of Magnesia Liq* PO 30 ml Q6H PRN Administration CONSTIPATION Oxycodone/Acetaminophen 1 tab 04/27/19 13:46 05/02/19 16:49 Percocet 5/325 Tab* PO 1 tab Q4H PRN Administration PAIN - MODERATE Oxycodone/Acetaminophen 2 tab 04/27/19 13:46 05/02/19 12:38 Percocet 5/325 Tab* PO 2 tab Q4H PRN Administration PAIN - SEVERE Polyethylene Glycol/Electrolytes 17 gm 04/29/19 09:00 05/02/19 08:09 Miralax* PO 17 gm DAILY SALLIE Administration Senna 2 tab 04/27/19 13:40 04/30/19 20:41 Senokot 8.6 Mg Tab* PO 2 tab BEDTIME PRN Administration CONSTIPATION Vital Signs: Vital Signs Temp Pulse Resp BP Pulse Ox 98.2 F 83 18 115/66 98 05/02/19 14:45 05/02/19 14:45 05/02/19 17:19 05/02/19 14:45 05/02/19 17:19 Exam: GENERAL: No apparent distress LUNGS: Clear bilaterally HEART: regular rhythm ABDOMEN: Soft EXTREMITIES: Left hip wound C/D/I NEUROLOGIC: A&O. Sensation intact. Strength 5/5 except LLE which is 3/5 proximally, DF 4/5 Assessment/Plan: 1. Left total Hip Replacement: PT/OT. WBAT. 2. Heartblock: Pacemaker functioning 3. Spinal Stenosis: On Gabapentin 4. Hypotension: holding Lisinopril 5. DVT Prophylaxis: Eliquis 6. Advance Directives: Full code. 05/02/19 18:41
[2019-05-02] MEDS: Gabapentin CAP(*) 400 MG PO SCH (20:56)
[2019-05-03] MEDS: oxyCODONE/Acetamin 5/325 MG* TAB PO PRN ×5 (02:27→21:09)
[2019-05-03] MEDS: Docusate CAP* 100 MG PO SCH ×2 (08:16→21:08)
[2019-05-03] MEDS: Polyethylene Glycol 3350* 17 GM PACKET PO SCH (08:16)
[2019-05-03] MEDS: Apixaban* 2.5 MG TAB PO SCH ×2 (08:16→21:08)
[2019-05-03] MEDS: Atorvastatin* 40 MG TAB PO SCH (16:51)
--- NOTE | 2019-05-03 18:08 | PN ---
Progress Note Date of Service: 05/03/19 Note: ROGERIO CHAVIS was visited. Therapy notes read and reviewed. She is doing well and is set for discharge in am. No complaints this evening. BP coming up Current Medications: Active Medications Generic Name Dose Route Start Last Admin Trade Name Freq PRN Reason Stop Dose Admin Acetaminophen 650 mg 04/27/19 13:40 Tylenol Tab* PO Q6H PRN MILD PAIN or TEMP > 100.4 Apixaban 2.5 mg 04/27/19 21:00 05/03/19 08:16 Eliquis* PO 2.5 mg BID SALLIE Administration Atorvastatin Calcium 40 mg 04/28/19 17:00 05/03/19 16:51 Lipitor* PO 40 mg 1700 SALLIE Administration Bisacodyl 10 mg 04/30/19 14:56 Dulcolax Supp* MA DAILY PRN CONSTIPATION Docusate Sodium 100 mg 04/27/19 21:00 05/03/19 08:16 Colace Cap* PO 100 mg BID SALLIE Administration Gabapentin 2,400 mg 04/27/19 21:00 05/02/19 20:56 Neurontin Cap(*) PO 2,400 mg BEDTIME SALLIE Administration Magnesium Hydroxide 30 ml 04/27/19 13:40 04/28/19 21:47 Milk Of Magnesia Liq* PO 30 ml Q6H PRN Administration CONSTIPATION Oxycodone/Acetaminophen 1 tab 04/27/19 13:46 05/02/19 16:49 Percocet 5/325 Tab* PO 1 tab Q4H PRN Administration PAIN - MODERATE Oxycodone/Acetaminophen 2 tab 04/27/19 13:46 05/03/19 16:51 Percocet 5/325 Tab* PO 2 tab Q4H PRN Administration PAIN - SEVERE Polyethylene Glycol/Electrolytes 17 gm 04/29/19 09:00 05/03/19 08:16 Miralax* PO 17 gm DAILY SALLIE Administration Senna 2 tab 04/27/19 13:40 04/30/19 20:41 Senokot 8.6 Mg Tab* PO 2 tab BEDTIME PRN Administration CONSTIPATION Vital Signs: Vital Signs Temp Pulse Resp BP Pulse Ox 98.2 F 76 18 122/60 76 05/03/19 15:55 05/03/19 15:55 05/03/19 16:51 05/03/19 15:55 05/03/19 15:55 Exam: GENERAL: No apparent distress LUNGS: Clear bilaterally HEART: regular rhythm ABDOMEN: Soft EXTREMITIES: Left hip wound C/D/I NEUROLOGIC: A&O. Sensation intact. Strength 5/5 except LLE which is 3/5 proximally, DF 4/5 Assessment/Plan: 1. Left total Hip Replacement: PT/OT. WBAT. 2. Heartblock: Pacemaker functioning 3. Spinal Stenosis: On Gabapentin 4. Hypotension: holding Lisinopril 5. DVT Prophylaxis: Eliquis 6. Advance Directives: Full code. 05/03/19 18:09
[2019-05-03] MEDS: Gabapentin CAP(*) 400 MG PO SCH (21:09)
[2019-05-04] MEDS: oxyCODONE/Acetamin 5/325 MG* TAB PO PRN ×3 (05:32→14:10)
[2019-05-04 06:27] VITALS: BP 137/77
[2019-05-04] MEDS: Apixaban* 2.5 MG TAB PO SCH (08:51)
[2019-05-04] MEDS: Docusate CAP* 100 MG PO SCH (08:51)
[2019-05-04] MEDS: Polyethylene Glycol 3350* 17 GM PACKET PO SCH (08:52)
[2019-05-04] MEDS ORDERED: Warfarin TAB(*) 2.5 MG PO ONE (15:00)
--- NOTE | 2019-05-04 23:54 | DS ---
CC: Dr. Ashley in [place] * DISCHARGE SUMMARY: DATE OF ADMISSION: 04/27/19 DATE OF DISCHARGE: 05/04/19 DISCHARGE DIAGNOSES: 1. Left total hip replacement. 2. Paroxysmal atrial fibrillation. 3. Heart block status post pacemaker placement. 4. History of colon cancer. 5. Hypertension. 6. Spinal stenosis. HISTORY OF PRESENT ILLNESS AND HOSPITAL COURSE: For a complete history of the events leading up to her rehab stay, please see the history and physical dictated by me on 04/27/19. While on the rehab unit, the patient remained fairly stable from a medical point of view. Her pain was well controlled with Percocet. She had slight difficulty with constipation. This was relieved with MiraLAX. Her wound looked clean and dry while on the rehab unit. The patient did have edema in both legs that was slight but the patient had told me that Lasix had not helped with that in the past. The edema was slightly worse in the left leg. The patient was otherwise medically stable. She was seen by Physical Therapy and Occupational Therapy and made good gains with both disciplines. With physical therapy, at the time of admission, the patient required mod assist for bed mobility, dependent for transfers. She was able to ambulate about 30 feet with mod assist. Without occupational therapy at the time of admission, the patient required setup for upper body dressing, max assist for lower body dressing, she was dependent for donning and doffing footwear, max assist for toileting, mod assist for toilet transfers. By the time of discharge, the patient was independent in transfers, independent in ambulating 150 feet, independent going up and down 4 steps. She was independent in toileting, independent in toilet transfers, independent in upper and lower body dressing. The patient was discharged home on 05/04/19. DISPOSITION: Home. CONDITION ON DISCHARGE: Good. DISCHARGE DIET: Regular. DISCHARGE MEDICATIONS: 1. Coumadin 2 mg daily or as directed. She will bridge with 5 days of subcutaneous Lovenox 40 mg daily. 2. Lipitor 40 mg daily. 3. Gabapentin 2400 mg at bedtime. 4. Percocet 1 to 2 tablets every 4 hours as needed. 5. Lisinopril 10 mg every morning. 6. She will hold her aspirin while she is on Coumadin. SERVICES AFTER DISCHARGE: Through [facility]. She will have home nursing, home physical therapy. Follow up with Dr. Romi Lopes on Wednesday , 05/08/19. She will also follow up with her primary care doctor, Dr. Ashley in [place]. TIME SPENT: Time for this discharge was approximately 50 minutes, greater than half of that was spent with the patient and her explaining post- rehabilitation therapy, services, and equipment. [id number]/[facility] #: [id number] [id number]
[2019-05-05] MEDS ORDERED: Enoxaparin(*) 40 MG/0.4 ML SYR SUBCUT SCH (09:00)
[2019-05-05] MEDS ORDERED: Warfarin TAB(*) 2 MG PO SCH (17:00)
== END 2019-05-04 14:20 | disposition home health service (06) | DRG 561 ==
LOC: PMRU 12:04
PROVIDERS: ADMIT Physical Medicine & Rehabilitation; ATTEND Physical Medicine & Rehabilitation
PROC: F07Z5ZZ Bed Mobility Treatment (ICD-10-PCS; principal; 2019-04-27)
PROC: F07Z9ZZ Gait Training/Functional Ambulation Treatment (ICD-10-PCS; 2019-04-27)
PROC: F07Z8ZZ Transfer Training Treatment (ICD-10-PCS; 2019-04-27)
PROC: F07Z4ZZ Wheelchair Mobility Treatment (ICD-10-PCS; 2019-04-27)
PROC: F08Z0ZZ Bathing/Showering Techniques Treatment (ICD-10-PCS; 2019-04-27)
PROC: F08Z1ZZ Dressing Techniques Treatment (ICD-10-PCS; 2019-04-27)
PROC: F08Z3ZZ Feeding/Eating Treatment (ICD-10-PCS; 2019-04-27)
PROC: F08Z2ZZ Grooming/Personal Hygiene Treatment (ICD-10-PCS; 2019-04-27)
DX: Z47.1 Aftercare following joint replacement surgery (principal); Z96.642 Presence of left artificial hip joint; I48.0 Paroxysmal atrial fibrillation; I45.9 Conduction disorder, unspecified; I10 Essential (primary) hypertension; M48.00 Spinal stenosis, site unspecified; Z95.0 Presence of cardiac pacemaker; Z85.038 Personal history of other malignant neoplasm of large intestine; I25.2 Old myocardial infarction; Z79.899 Other long term (current) drug therapy; Z88.0 Allergy status to penicillin; Z82.5 Family history of asthma and other chronic lower respiratory diseases
CPT/HCPCS: 36415; 80053; 85025; A9270-GY